=== PATIENT | female | born 1985 | race Caucasian/White ===

== ENCOUNTER 2016-05-24 22:13 | Inpatient (IN) | payer MEDICAID, OTHER ==
[~2016-05-24] VITALS: Ht 165.1 cm; Wt 61.4 kg
[~2016-05-24 22:13] MED LIST: IBUP-1827 PO; NPR500T PO; OXYC1TAB24 PO; OXYC1TAB91 PO; PREN1TAB25 PO
[2016-05-24 22:18] VITALS: BP 131/78; PULSE 82; RESP 16; O2SAT 100
--- NOTE | 2016-05-24 23:45 | ED.REPORT ---
HPI-Psychiatric Illness Date of Service May 24, 2016 ED Provider: Munira Heart MD The patient is a 30 year old female with history of bipolar disorder, PTSD, and generalized anxiety disorder who presents to the ED after asking her boyfriend to bring her to the hospital after she lost control control of her emotions and began hitting her head against the wall. She is seeking a mental health evaluation because she "doesn't want to be a freak anymore". She says that she "wants to disappear" but does not know if she is suicidal- her mother committed suicide and she does not want to put her children through what she went through. She reports hearing a voice in her head which she believes is her conscience. She denies homicidal ideation and any other symptoms at this time. Nursing Notes Stated Complaint: MENTAL EVAL Chief Complaint: Psychiatric Complaint Nursing Notes Reviewed: Yes Allergies: Coded Allergies: venlafaxine (Verified Adverse Reaction, Unknown, 05/24/16) Homicidal ideation Scheduled Oxycodone HCl/Acetaminophen (Endocet 10-325 mg Tablet) 1 Each Tablet 1-2 EACH PO QID Vit#96/Ferrous Fum/FA ( Tablet) 1 Each Tablet 1 EACH PO DAILY Scheduled PRN Ibuprofen (Ibuprofen) 600 Mg Tablet 600 MG PO QID PRN PRN For Pain Naproxen (Naproxen) 500 Mg Tab 500 MG PO BID PRN PRN For Pain oxyCODONE-Acetaminophen 5-325 mg (oxyCODONE-Acetaminophen 5-325 mg) 1 Each Tablet 1-2 TAB PO Q4H PRN PRN For Pain oxyCODONE-Acetaminophen 5-325 mg (oxyCODONE-Acetaminophen 5-325 mg) 1 Each Tablet 1-2 TAB PO Q6H PRN PRN For Pain General Time Seen by MD: 23:33 Chief Complaint Suicidal ideation Hx Obtained From: Patient Arrived By: Walk-in Onset Occurred: 1 - 4 hours ago Symptom Duration: 16 - 30 minutes Severity: Current: No pain currently Severity: Maximum: No pain Recent Healthcare: No recent doctor visit, No recent hospitalization Similar Sx Previous: No Risk-Psychiatric Illness Suicide Risk Stratification Suicide Risk Factors - Adult: : Family Hx of Suicide (Mother) RF Statements: Risk factors reviewed Past Medical History Past Medical History Bipolar disorder with history of depression. History of rectal and vaginal tear Past Surgical History 5 weeks ago Family History Noncontributory Smoking History Former Smoker Social History Alcohol Use: "Social" Drug Use: Denies drug use Ambulatory Status Independent Review of Systems Constitutional: Denies: Chills, Fever Respiratory: Denies: Non-productive cough, Shortness of breath GI: Denies: Abdominal pain, Nausea, Vomiting Psychiatric: Reports: Anxiety, Hallucinations, auditory, Suicidal ideation, Unable to control self, Denies: Hallucinations, visual, Homicidal ideation, Hostile Complete sys rev & neg: except as marked. Physical Exam Initial Vital Signs Vital Signs (First) Date Time Temp Pulse Resp B/P Pulse Ox O2 Delivery O2 Flow Rate FiO2 05/24/16 22:18 36.1 82 16 131/78 100 Room Air Initial VS: Reviewed Head / Eyes: Atraumatic, Normocephalic, PERRL ENT: Mucous membranes moist, Conjunctiva normal, No scleral icterus Neck: Supple, Non-tender, Full range of motion Respiratory: Breath sounds normal, Clear to auscultation, No respiratory distress Cardiovascular: Regular rate & rhythm, Heart sounds normal, Intact distal pulses Abdomen / GI: Soft, Non-tender, No guarding, No rebound, No distention Back: No CVA tenderness Extremities: Vascular intact, Neuro intact, No swelling, No tenderness Skin: Warm, Dry, No cyanosis General/Constitutional: Awake, Alert Behavior: Positive: Tearful Neurologic: Oriented X3, Speech NL, No motor deficits, No sensory deficits Psychiatric: Not homicidal Abnormal Mood/Affect: Positive: Depressed Abnormal Thinking / Perception: Positive: Hallucinations, auditory, Suicidal, no plan Normal speech patterns Interpretation & Diagnostics Lab Results Interpretation Result Diagram: 05/24/16 2345 05/24/16 2345 Test 05/24/16 23:45 05/24/16 23:46 White Blood Count 8.6th/mm3 (3.8-10.1) Red Blood Count 4.19mil/mm3 (3.90-5.20) Hemoglobin 11.4g/dL (12.0-15.6) Hematocrit 36.1% (35.0-46.0) Mean Corpuscular Volume 86.2fL (81-100) Mean Corpuscular Hemoglobin 27.2pg (27.0-35.0) Mean Corpuscular Hemoglobin Concent 31.6% (32.0-37.0) Red Cell Distribution Width 13.7% (12.3-15.4) Platelet Count 187bil/L (150-400) Neutrophils (%) (Auto) 69.4% (40-74) Lymphocytes (%) (Auto) 17.2% (14-46) Monocytes (%) (Auto) 11.8% (4-12) Eosinophils (%) (Auto) 1.3% (0-5) Basophils (%) (Auto) 0.2% (0-3) Sodium Level 141mEq/L (134-144) Potassium Level 4.1mEq/L (3.5-5.2) Chloride Level 107mEq/L (97-108) Carbon Dioxide Level 22mmol/L (18-29) Blood Urea Nitrogen 8mg/dL (6-20) Creatinine 0.47mg/dL (0.57-1.00) Estimat Glomerular Filtration Rate 221mL/min (>59) Glucose Level 100mg/dL (60-99) Calcium Level 8.7mg/dL (8.5-10.1) Total Bilirubin 0.2mg/dL (0.0-1.2) Aspartate Amino Transf (AST/SGOT) 17U/L (0-50) Alanine Aminotransferase (ALT/SGPT) 12U/L (0-32) Alkaline Phosphatase 45U/L (25-150) Total Protein 6.5g/dL (6.4-8.4) Albumin 4.1g/dL (3.4-5.0) Thyroid Stimulating Hormone (TSH) 1.170uIU/mL (0.450-4.500) Hold Sosa Top Tube Received (Received) Re-Eval/Medical Decision Med Decision/Clinical Course 30-year-old female with past medical history of anxiety, PTSD, bipolar disorder , not currently taking her medications here with suicidal ideation. Differential diagnosis includes but is not limited to suicidal ideation versus electrolyte abnormality versus malingering versus drug-seeking behavior. Patient's CBC and CMP are unremarkable, aside from mild leukocytosis. Her urinalysis has not yet resulted. She is otherwise medically cleared, and has been transferred to the care of who will follow up her urinalysis. Patient will be seen by social work in the morning. She is aware and amenable to plan. Source of Hx: Old records Discharge & Departure Shift Change Sign-Out Patient Care Transferred: Yes Discussed Complaint(s): Yes Laboratory Evaluation: Lab evaluation discussed Response to Therapy: Unchanged Discharge Condition All VS Reviewed: Yes Condition: Stable Referrals: Rahat Meeks DO (PCP) Care Transferred to: Dr. Duvall. Care transferred at change of shift. Care Transferred at: 03:00 Scribe Attestation Portions of this note were transcribed by Rahat Gautam. I, Dr. Heart, personally performed the history, physical exam, and medical decision-making; I reviewed and confirmed the accuracy of the information in the transcribed note. Signed by: Isaac Soares, [Date] and [Time]. copies to: Rahat Meeks Rebecca A MD May 24, 2016 23:45 RAHAT GAUTAM May 25, 2016 00:03
[2016-05-24 23:56] LABS: BASOPHILS % (AUTO) 0.2 % (0-3); EOSINOPHILS % (AUTO) 1.3 % (0-5); MONOCYTES % (AUTO) 11.8 % (4-12); Mean Corpuscular Hemoglobin 27.2 pg (27.0-35.0); Mean Corpuscular Volume 86.2 fL (81-100); NEUTROPHILS % (AUTO) 69.4 % (40-74); Platelet Count 187 bil/L (150-400)
[2016-05-25 05:48] VITALS: BP 96/53; PULSE 61; RESP 18; O2SAT 98
[2016-05-25 07:59] VITALS: BP 95/55; PULSE 83; RESP 16; O2SAT 98
[2016-05-25] MEDS ORDERED: LORazepam 1 mg Tablet PO ONE (11:50)
[2016-05-25 16:38] VITALS: BP 109/67; PULSE 87; RESP 16; O2SAT 100
[2016-05-25 18:43] LABS: APPEARANCE,URINE HAZY (CLEAR,HAZY); COLOR,URINE YELLOW (YELLOW); OCCULT BLOOD,URINE NEGATIVE (NEGATIVE); UROBILINOGEN,URINE NORMAL (NORMAL)
[2016-05-25] MEDS ORDERED: Alum-Mag Hydrox-Simeth 30 mL Suspension PO PRN (19:30)
[2016-05-25] MEDS ORDERED: Benzocaine-Menthol Lozenge 2/Pkg PO PRN (19:30)
[2016-05-25] MEDS ORDERED: Magnesium Hydroxide 10 mL Oral Concentration PO PRN (19:30)
--- NOTE | 2016-05-25 19:57 | NUR ---
OBSERVATIONS 899 to 2129 Pt arrived on unit at 1815. Pt was cooperative with admit paperwork and forthcoming with information. Pt is pleasant and appropriate. Pt attempts to be social but at times becomes visibly anxious, sometimes tearful. Pt showered and made a phone call, participated in wrap up group. Addendum: 05/25/16 at 2046 by [facility] Maintained Q15 checks for safety as directed.
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
[2016-05-25] MEDS ORDERED: CETI10CA PO (21:47)
--- NOTE | 2016-05-26 06:17 | NUR ---
Sleep Ambien w/ repeat effective. Pt slept through the night awakening x 1. Adequate sleep of over 7 hours. She remains asleep at current time.
--- NOTE | 2016-05-26 11:50 | NUR ---
Nursing Day Shift- S- I feel really anxious. I'm sweating. That's what happens when I get anxious. I don't feel that pill." O- Pt. was awake for breakfast. She was polite with staff and peers. at 0850 Pt. complained of anxiety rated 8/10. Klonopin 1 mg was given at that time. At 0930 Pt. denied feeling a decrease in anxiety, but at 10 AM she rated her anxiety as 5/10, and laid down to take a nap. Pt. denied thoughts of self harm. A- Anxiety. Hx. of poor sleep. P- Cont. bHTP. Awaiting interview with
--- NOTE | 2016-05-26 17:48 | NUR ---
[facility] Day Shift Pt maintained behavioral control throughout the shift, despite some difficulty in the late AM/early afternoon when pt became inconsolably tearful. Pt affect appears sad, tearful in the AM, brighter in the afternoon. Pt spends most of the shift interacting with staff and peers in the dining room. Pt expresses a strong desire to see her family members during visiting hours, which staff accommodated without incident. Pt is appropriate with staff and peers when active on the unit and appears more social in the afternoon/evening. Pt attended community meeting in the AM and group activities throughout the shift. Pt attended all meals and ate approx 75% of all meals.
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
[2016-05-26] MEDS: Divalproex (QD) 500 mg ER24 Tablet PO SCH (21:09)
--- NOTE | 2016-05-26 21:44 | NUR ---
NURSING NOTE [id number] Mood: "up and down I guess" *laughs nervously* Affect: bright and pleasant w/peers, occasional irritable edge w/staff Behavior: pt. has been visible and social all shift; she spent time in the rec room w/her peers, colored for a while, her sister brought her 2 year-old son to visit under staff supervision per doctors permission. Pt. overheard by staff complaining to her peers and family about RNs working here and later told this designer writer: "I'm so glad you're here now -- those other nurses were BITCHES!-- they asked me why I needed anxiety medication and what it was for! Like I don't have anxiety!" Counseled pt. that RNs routinely assess need for medication in order to properly administer it. Minimal understanding noted by patient. Thought processes: pt. denies SI/HI/AH/VH. She endorses anxiety and depression. Reports she has tried "really, really hard" to be out in the DR during the day and amongst her peers. In conversation w/this designer writer she has a frequent nervous habit of grabbing at her throat and wafting air in front of her face when she becomes anxious and her face becomes flushed. PRNs Klonopin 1 mg @ 18:45 for 8/10 anxiety, effective upon reassessment
--- NOTE | 2016-05-27 06:08 | NUR ---
Nursing note: gauge operator 2300-07 Patient appears to be sleeping on safety checks until she awoke at 0440. Patient reports she woke up feeling anxious and requested Klonopin. Patient received Klonopin 1 mg at 0442 and additional Nicorette lozenge. Patient returned to room and appears to be sleeping on subsequent safety checks this am.
[2016-05-27 10:16] VITALS: BP 122/87; PULSE 108; RESP 16
--- NOTE | 2016-05-27 13:07 | NUR ---
Nursing Note [id number] Behavior S/O: Pt has good appetite. Pt polite & cooperative. Conversation tracking clear but disorganized with normal rate & rhythm. Out in milieu and groups. Pt requesting information about Depakote & prazosin-given. Pt reports she takes Claritin BID. Pt given Claritin early. Pt will talk with psychiatrist about ordering it twice daily. VS stable except pulse is 108. Pt requested "anxiety medication" for "agarophobia" at a "7" on a scale of 1-10/10 the worst. A: Pt's thinking d/n appear clear. P: Provide supportive environment. Monitor medications & effects.
--- NOTE | 2016-05-27 16:52 | PROG NOTE ---
[address] [address] PROGRESS NOTE PATIENT: LOBO DEVI : 1985 MR#: [id number] ADMIT: 05/25/2016 JOB ID: [id number] DATE: 05/27/2016 CHIEF COMPLAINT: "I had some suicidal thoughts yesterday but none this morning. I am having a hard time. Thinking about going back home." HISTORY OF PRESENT ILLNESS: As stated above, the patient is a 30-year-old female who reportedly was admitted within the past 72 hours. She reportedly has been seen by Dr. Cordova and history was reviewed. The patient indicated that last evening she was experiencing significant distress, thinking about returning back home, and stated that she became quite suicidal. She indicated that she had thoughts and plans of returning back to her home and potentially taking an overdose. She indicated that she did not share this with staff. She reports that prior to her admission, she was struggling with daily thoughts of suicide and thoughts of self-harm. She indicates that she was started on medications by Dr. Cordova including doses of Depakote, with the hope and intent to settle some of her mood swing variability. She is currently maintained on 1000 mg q.h.s. She reportedly is also receiving p.r.n. doses of Klonopin and was initiated on prazosin low-dose therapy at 1 mg q.h.s. She reports that she has seen an improvement with her nightmares with the doses of prazosin but states that she continues to struggle with fears and anxiety as related to her discharge. MENTAL STATUS EXAMINATION: She was casually dressed in her own attire. She made intermittent eye contact. Her speech is of normal tone, frequency, and volume. Her mood was anxious. Affect was guarded. Her thought process shows evidence of some distractibility and throughout she appeared to be internally preoccupied. Her thought content, she denies any current suicidal ideation. She reportedly identified last evening she was struggling with both suicidal and thoughts of self-harm. She denies any active hallucinations or delusions. There is no sensation of paranoia. She was alert, oriented to time and place. Her attention and concentration were fleeting. Her memory is untested. Her insight and judgment are poor. PHYSICAL EXAM: Vital signs current: Temperature is 36.5, pulse 108, respirations 16, BP 122/87. MEDICATION REVIEW: Includes: 1. Doses of Depakote 1000 mg q.h.s. 2. Prazosin 1 mg q.h.s. 3. P.r.n. doses of Klonopin 1 mg q.4 h. for anxiety and agitation. ASSESSMENT: Phoenix I. 1. Bipolar disorder, most recent episode depressed. 2. Posttraumatic stress disorder chronic. 3. Generalized anxiety disorder. 4. Panic disorder with agoraphobic presentation. 5. Marijuana use disorder. 6. Methamphetamine use disorder, in remission. Phoenix II. Borderline personality disorder. Phoenix III. None. Phoenix IV. Stressors are moderate. Phoenix V. Global Assessment of Functioning current 35. PLAN: 1. Recommendations for continuation of all medications noted. 2. Probable discharge on Friday with reconnections with [facility]. The patient reports that she had attended both [facility] and [facility] for intakes and preferred not to return to those facilities, indicating that she felt that she was disregarded. 3. Continuation of DBT curriculum and approach.
[2016-05-27] MEDS: Divalproex (QD) 500 mg ER24 Tablet PO SCH (20:50)
--- NOTE | 2016-05-27 23:02 | NUR ---
Evening shift 3pm to 11pm Pt AAOx3, pleasant and cooperative, socializing in milieu with peers, Pt reports mood anxious /10, affect incongruent. Thoughts organized, linear and logical. Pt reports passive and fleeting SI with no plan or intent and agrees to come to staff if impulse to hurt self arise. Pt's with adequate food and fluid intake, hygiene good. Pt able to make needs known, is medication compliant, no medical issues reported or observed.
--- NOTE | 2016-05-28 04:39 | NUR ---
nursing, nights, 11-7 s/o- has appeared to sleep after 2345 during q 15 minute assessments. a- no apparent distress. p- monitor behavior/emotional state, quality, times and amount of sleep, use and effect of medication
--- NOTE | 2016-05-28 13:15 | NUR ---
Nursing Note [id number] Behavior S/O: Pt has good appetite. She attends groups with peers. Pleasant & cooperative with staff & peers. Pt states she would like more information on coping skills that she can use when she is discharge. Advised pt to talk with patient case coordinator for handouts. Pt requested anxiety medications for agarophobia that she rated at a "7" on a scale of 1-10/10 the worst. She states she has to really work on getting out of her room. Klonopin 1 mg given at 1033 with good affect. Full affect. Conversation tracking clear & organized with normal rate & rhythm. Alert & oriented x 3. A: Pt needs coping skills to maintain mood outside of the hospital. P: Monitor medications & effects. Provide supportive environment.
--- NOTE | 2016-05-28 15:14 | PROG NOTE ---
[address] [address] PROGRESS NOTE PATIENT: LOBO DEVI : 1985 MR#: [id number] ADMIT: 05/25/2016 JOB ID: [id number] DATE: 05/28/2016 CHIEF COMPLAINT: "I guess I'm doing okay." This per patient report. HISTORY OF PRESENT ILLNESS: As stated above, the patient met with myself and AJ. She was informed that the plan and intent to discharge is going to proceed into arranging outpatient appointments with [facility]. She did appear to be somewhat distraught, tearful indicating that she does not know if she feels that she is ready to leave the hospital. She was affirming that she had no further safety concerns, no evidence of suicidal thoughts throughout the daytime hours. She indicates that she has been participating in group activities and actually was attending a group prior to meeting with myself and AJ. The patient became tearful openly identifying that she does have some anxiety about discharging but she was encouraged to continue with her current treatment plans including completing the discharge paperwork, identifying triggers and safety and warning signs appearing. OBJECTIVE: On mental status examination, the patient made questionable eye contact, she was initially full and bright on interaction until discussion was held about the plan of discharge. The patient became quite tearful, distraught, identifying some anxiety. Her speech was of normal tone, frequency and volume. Her mood was alexithymic. Her affect was inappropriate and incongruent. Her thought process shows no evidence of racing thoughts, flight of ideas, loose or disconnected thinking. Thought content: She denied any evidence of current suicidal ideation, intent or plan. No evidence of homicidal variant. There was no evidence of paranoia, hallucinations, delusions. She was alert, oriented to time, place, situation. Attention and concentration intact. Memory intact in the short term, jail, recent. Insight and judgment are fair. PHYSICAL EXAMINATION: Vital signs of current. Temperature is 36.5, pulse 108, respirations 16, BP 122/87. MEDICATION REVIEW: Includes: 1. Depakote 1000 mg ER q.h.s. 2. Prazosin 1 mg q.h.s. 3. Trazodone 25 mg p.r.n. at h.s. 4. Naproxen 500 mg b.i.d. 5. Klonopin 1 mg q.4 hours p.r.n. for anxiety and agitation. ASSESSMENT: AXIS I 1. Posttraumatic stress disorder, chronic. 2. Generalized anxiety disorder. 3. Panic disorder with agoraphobic presentation. 4. Marijuana use disorder. 5. Methamphetamine use disorder. AXIS II Borderline personality disorder. AXIS III None. AXIS IV Stressors are significant for disturbance of coping, previous usage of substances. AXIS V Global assessment of functioning current 40. PLANS: 1. Recommendations for continuation of all medications noted. 2. Plan of discharge with followup with [facility]. 3. Continuation of a DBT curriculum and approach.
--- NOTE | 2016-05-28 18:49 | NUR ---
Observations [id number] Pt was asleep in room upon start of shift. She appeared to be very confused in the morning, stating her meds are making her feel "spacey." Pt was friendly with staff and peers. Pt asked during the day if there were any therapeutic activities she could do during her stay here. She participated in group. In the afternoon, pt became extremely anxious and upset regarding her discharge, crying and sitting in the corner of the joshi. She banged her head on the wall, and threw some of her belongings. Pt demanded to "leave right now" and was noticeable upset that she would be sharing a room. Pt was able to calm down after a few hours. Pt was observed every 15 minutes of shift as directed.
[2016-05-28 20:43] VITALS: BP 98/70; PULSE 83; RESP 17
[2016-05-28] MEDS: Divalproex (QD) 500 mg ER24 Tablet PO SCH (20:59)
--- NOTE | 2016-05-28 22:23 | NUR ---
Nursing Note [id number] Pt screaming at nurse in hallway upon arrival to unit. Pt upset r/t having to share room and being DC in am. Pt moved to room 231. Pt stating "I want to leave if I have to share a room, Im voluntary and I want to leave. Called MD and had pt signed AMA paperwork at 1615. Pt then decided to stay after talking to boyfriend and finding out that she would not be allowed home. Pt crying in room and stated "I want to leave but I can't because I can't go home". Pt stated she would try and control her behavior. Boyfriend called and talked to nursing staff and stated she was threatening to kill herself if he wouldn't allow her home. I asked pt if she was having thoughts of harming herself and she denied. Pt rated anxiety 8/10 and depression 8/10. Pt has been calling [facility] to try and get a bed for DC in am. Q15 min safety checks per protocol, Pt behavior improved and was able maintain control. PRN trazodone given to promote sleep. WCTM sleep, safety, behavior
--- NOTE | 2016-05-29 06:37 | NUR ---
Sleep Adequate sleep through the night with no noted distress per protocol checks. Total sleep over 7 hours.
--- NOTE | 2016-05-29 09:32 | PCM.DIMED ---
Discharge Instructions Date of Service May 29, 2016 Dates of Hospitalization May 25, 2016 at 17:45 Discharge Diagnosis Discharge Diagnosis Borderline Personality DO PTSD chronic Mood DO NOS Diet No restrictions Activity No restrictions Mo Jaquez DO May 29, 2016 09:31
[2016-05-29] MEDS ORDERED: DIVA500T14 PO (09:33)
[2016-05-29] MEDS ORDERED: PRAZ1CAP PO (09:33)
[2016-05-29 11:24] VITALS: BP 103/55; PULSE 83; RESP 18
--- NOTE | 2016-05-29 11:52 | NUR ---
Nursing Discharge- Planned discharge to [facility] in [place] at 1230 today. Pt's medications to be faxed to [facility] in [place] as she had requested. Pt. expressed discharge anxiety rated 8/10 at 0900. She requested and received Klonopin 1 mg at that time. Pt. reported that it had been helpful. She denied thoughts of self harm. She was able to identify the source of her anxiety as being a new and unknown living situation. Pt. continues to eat well.
--- NOTE | 2016-05-29 15:10 | DIS ---
[address] [address] DISCHARGE SUMMARY PATIENT: LOBO DEVI : 1985 MR#: [id number] ADMIT: 05/25/2016 JOB ID: [id number] DIS: ADMITTING DIAGNOSES: AXIS I 1. Bipolar disorder, most recent episode depressed. 2. Posttraumatic stress disorder, chronic. 3. Generalized anxiety disorder. 4. Rule out panic disorder. 5. Marijuana use disorder. 6. Methamphetamine use disorder, in remission. AXIS II Borderline personality disorder. AXIS III None. AXIS IV Moderate. AXIS V Global Assessment of Functioning current 35. DISCHARGE DIAGNOSES: AXIS I 1. Mood disorder, not otherwise specified. 2. Posttraumatic stress disorder, chronic. 3. Marijuana use disorder. 4. Methamphetamine use disorder, in remission. AXIS II Borderline personality disorder. AXIS III None. AXIS IV Stressors are noted for disturbance of coping, disturbance of primary support system, chronic substance abuse. AXIS V Global Assessment of Functioning current 50. REASON FOR ADMISSION: The patient was a 30-year-old female with alleged history of bipolar disorder, PTSD, anxiety and significant substance abuse. She reportedly was admitted on a voluntary basis due to difficulties with increasing emotional lability and self-destructive behaviors including head banging. By history, the patient reportedly had sought out individual treatment at both [facility], and reportedly had been treated with medications prescribed by Dr. Harding including doses of lithium, Lamictal, paroxetine, citalopram, Wellbutrin, Prozac, quetiapine with noted inability to tolerate all medications. She reportedly had no prior history of inpatient hospitalization. Throughout hospital course, the patient remained quite labile and openly sensitive to feelings of abandonment rejection. She openly identified significant contributory factors of interpersonal conflict, difficulties with internal senses of rage and feelings of deep depression. Throughout hospital course, patient was initiated on medications by Dr. Cordova including doses of Depakote titrated to 1000 mg q.h.s. She reportedly also was initiated on doses of prazosin for noted history of nightmares. Throughout hospital course, the patient essentially identified a desire to follow up with outpatient care providers but was reluctant to engage, openly identifying that she feels that no one will be able to meet her needs. She was very dramatic and had significant sabotaging behaviors on the evening prior to discharge with threats of discharging against medical advise. Orders were given for discharge AMA. However, the patient elected to continue her hospitalization. Conversations were held by myself and the test case developer with her boyfriend of current who openly identified patterns of behavior including self-destruction, self-injurious behaviors, feelings of abandonment, of rage, difficulties with open acts of aggression directed towards the boyfriend. He identified that he felt uncomfortable with the patient returning to their home due to the safety and concern of the 2-year-old. He was encouraged to consider alternative options including moving in with his own parents. Discussion was held with the patient about the need for continuation of outpatient services repeatedly. However, she openly identified that she feels that no one can help her and showed a limited investment to change. Recommendations were to advance to a DBT curriculum for the emphasis of borderline treatment. The patient was agreeable to maintain on doses of Depakote, and her Depakote level on the day of discharge was noted at 74. It was felt that this may be used in conjunction for treatment of her mood stability. However, I did not support a diagnosis of bipolar disorder. I feel that this is inappropriate based on the patient's evidence of a clear diagnosis of borderline personality disorder, and I have discussed repeatedly with the patient and her boyfriend the importance of interventions of therapy component. CONDITION AT TIME OF DISCHARGE: Patient's mood and affect were stable. She denied any evidence of expressed suicidal intent or plan. She continues to struggle with daily thoughts and feelings of hopelessness, which is characteristic of her borderline personality disorder. She denied any active hallucinations, delusions. She was alert, oriented to time and place. Her attention and concentration were intact. Her insight and judgment were deemed poor. PLAN: 1. Recommendation is to discharge to [facility] if bed available. Alternative plans would include local nursing home options. 2. Recommendation is for continuation of Depakote ER 1000 mg q.h.s., 1 month supply, no refills. Reason for usage, mood stabilization. 3. Continuation of pravastatin 1 mg 1 tablet q.h.s., 1 month supply, no refills. Reason for usage, PTSD. 4. Recommended followup with [facility]. Appointments to be arranged by family independence case manager for both individual therapy, DBT curriculum, and medication management. 5. The patient was recommended to maintain a clean and sober lifestyle. 6. Recommendation is for future planning if the patient shows up on a basis with a desire to admit to the inpatient sector based on her previous history and limited investment to change with noted disruption on the inpatient unit. I would highly suggest that the patient be detained with recommendation of proceeding into placement at [facility] or other site facility that specializes in dealing with a DBT curriculum. I do not feel that the patient would benefit from readmission to our unit at this time due to her self-destructive and self-sabotaging behaviors.
--- NOTE | 2016-05-29 16:29 | NUR ---
Case Management/Counselor: S/O: Patient slept 6.5 hours last night per staff. Patient denied any evidence of expressed suicidal intent or plan. She continues to struggle with daily thoughts and feelings of hopelessness, which is characteristic of her borderline personality disorder. Out-patient appointment: [facility] Intake, 06/03/16 at12:00pm. A: Patient is cooperative at times, flat affect, poor insight, poor judgment. P: Follow the care plan, coordinate out-patient provider. Addendum: 05/29/16 at 1726 by [facility]
== END 2016-05-29 13:25 | disposition home or self-care (01) | DRG 753 ==
LOC: SED 22:13 → MHC 05-25 17:45
PROVIDERS: ADMIT Psychiatry & Neurology Psychiatry; ATTEND Psychiatry & Neurology Psychiatry
DX: F39 Unspecified mood [affective] disorder (principal); F41.1 Generalized anxiety disorder; F43.12 Post-traumatic stress disorder, chronic; F60.3 Borderline personality disorder; Z87.891 Personal history of nicotine dependence; F12.90 Cannabis use, unspecified, uncomplicated; F15.21 Other stimulant dependence, in remission

== ENCOUNTER 2016-10-12 16:02 | Observation (INO) | payer OTHER ==
[~2016-10-12] VITALS: Ht 165.1 cm; Wt 63.6 kg
[~2016-10-12 16:02] MED LIST changes: +DIVA500T14 PO; -IBUP-1827 PO; -OXYC1TAB24 PO; -OXYC1TAB91 PO; +PRAZ1CAP PO
--- NOTE | 2016-10-12 16:19 | ED.REPORT ---
HPI-Extremity Problem Lower Date of Service Oct 12, 2016 ED Provider: Dr. Gilberto Wilburn MD A healthy 31 year old female presents to the ED via EMS complaining of left leg pain secondary to an injury that occurred just prior to arrival. Patient was reportedly going down a steep slide and caught the leg in the slide causing it to fold back. The patient's endorses crepitus when the incident occurred. She currently describes throbbing pain in the LLE. Patient denies any other injuries above the knee. She denies chance of . Nursing Notes Stated Complaint: LEFT LOWER LEG INJURY Nursing Notes Reviewed: Yes Allergies: Coded Allergies: venlafaxine (Verified Adverse Reaction, Unknown, 05/24/16) Homicidal ideation Scheduled Divalproex ER (Divalproex ER) 500 Mg Tab.er.24h 1,000 MG PO HS Prazosin (Minipress) 1 Mg Capsule 1 MG PO HS Vit#96/Ferrous Fum/FA ( Tablet) 1 Each Tablet 1 EACH PO DAILY Scheduled PRN Naproxen (Naproxen) 500 Mg Tab 500 MG PO BID PRN PRN For Pain General Time Seen by MD: 16:19 Chief Complaint Leg injury left Hx Obtained From: Patient Arrived By: Ambulance Onset Occurred: Just prior to arrival Symptom Duration: Since onset Caused by: Accidental Location: : Leg left Quality: Painful, Throbbing Severity: Current: Moderate Severity: Maximum: Moderate Associated with: Reports: "Pop" felt or heard, Unable to bear weight Pertinent Negative: Pt denies other symptoms Recent Healthcare: No recent doctor visit, No recent hospitalization Past Medical History Past Medical History Bipolar disorder with history of depression. History of rectal and vaginal tear Past Surgical History Family History Noncontributory Smoking History Former Smoker Social History Alcohol Use: "Social" Drug Use: Denies drug use Other Social History: , Local resident Ambulatory Status Independent Review of Systems She denies any other injuries at this time. Musculoskeletal: Reports: Extremity pain (LLE), Denies: Back pain, Neck pain Neurologic: Denies: Change LOC, Headache Complete sys rev & neg: except as marked. Physical Exam Initial Vital Signs Vital Signs (First) Date Time Temp Pulse Resp B/P Pulse Ox O2 Delivery O2 Flow Rate FiO2 10/12/16 16:22 36.2 74 18 122/62 100 Room Air Initial VS: Reviewed Head / Eyes: Atraumatic, Normocephalic, PERRL Neck: Supple, Non-tender, Full range of motion Upper Extremities: Vascular intact, Neuro intact, No swelling, No tenderness Skin: Warm, Dry, No cyanosis Neurologic: Alert, Oriented, Nonfocal Psychiatric: Mood/affect normal, Behavior normal, Normal thought content Lower Extremity / Pelvis / MS: Neurologic intact, Vascular intact Left Leg / Calf: Positive: Tenderness present... LOWER EXTTREMITIES: Mid-leg deformity Good DP and PT pusles Ankle / Foot: Atraumatic, Neurologic intact, Vascular intact General/Constitutional: Awake, Alert, No acute distress Respiratory / Chest: Atraumatic, Breath sounds NL, Breath sounds = bilat, No respiratory distress Cardiovascular: Heart rate NL, Regular rhythm, Heart sounds NL Interpretation & Diagnostics Lab Results Interpretation Test 10/12/16 16:40 Hold Purple Top Tube Received (Received) Hold Blue Top Tube Received (Received) Hold Barton Top Tube Received (Received) X-Ray Interpretation Xray Interpretation: IMPRESSION: Spiral tibiofibular fracture X-Ray Ordered: Tibia fibula left Interpretation / Wet Read by: Wet read ED physician Re-Eval/Medical Decision Re-Evaluation/Progress : Time of Eval: 16:44 Patient Status: Condition improved Re-Evaluation/Progress Note: Patient is rechecked. She is informed of her X-ray results. All questions about the intended treatment plan are addressed. She understands and agrees with the plan to admit to the hospital. Consultation : Referral / Consult Name: Neil Carias MD Consulted With: Orthopedic Call Returned at: 16:54 Counter Maker: Will see patient, Will see in office, Agrees with eval, Agrees with plan, Accepts admit Counseled Regarding: Diagnosis, Need for admission Discharge & Departure Impression: Primary Impression: Spiral fracture of shaft of tibia Encounter type: initial encounter Fracture type: closed Fracture alignment : displaced Laterality: left Qualified Code: S82.242A - Displaced spiral fracture of shaft of left tibia, initial encounter for closed fracture Additional Impression: Spiral fracture of shaft of fibula Encounter type: initial encounter Fracture type: closed Fracture alignment : displaced Laterality: left Qualified Code: S82.442A - Displaced spiral fracture of shaft of left fibula, initial encounter for closed fracture Disposition: ADMITTED TO HOSPITAL Discharge Condition All VS Reviewed: Yes Condition: Stable Referrals: Rahat Meeks DO (PCP) Neil Carias MD Attestation Portions of this note were transcribed by Lizbet Neal. Dr. Cosmo Yeager personally performed the history, physical exam and medical decision-making; I reviewed and confirmed the accuracy of the information in the transcribed note. Signed by: Isaac Langston, 10/12/16 1745. copies to: Rahat Meeks Kirk H MD Oct 12, 2016 16:19 LIZBET NEAL Oct 12, 2016 16:23 Isaac Attestation Portions of this note were transcribed by Lizbet Neal. Dr. Cosmo Yeager personally performed the history, physical exam and medical decision-making; I reviewed and confirmed the accuracy of the information in the transcribed note. Signed by: Isaac Langston, 10/12/16 1800. copies to: Rahat Meeks Kirk H MD Oct 12, 2016 16:19 LIZBET NEAL Oct 12, 2016 16:23
[2016-10-12 16:22] VITALS: BP 122/62; PULSE 74; RESP 18; O2SAT 100
[2016-10-12] MEDS ORDERED: Ondansetron 2 mg/mL 2 mL Inj IVPUSH PRN ×2 (16:35→19:00)
[2016-10-12] MEDS: HYDROmorphone 1 mg/mL Inj IVPUSH PRN ×2 (17:00→17:43)
[2016-10-12] MEDS ORDERED: HYDROmorphone 1 mg/mL Inj IVPUSH PRN ×4 (17:05→23:45)
--- NOTE | 2016-10-12 17:51 | DRSVH ---
PROCEDURE: X-RAY LEFT TIBIA/FIBULA, TWO VIEWS ([id number]) INDICATIONS: trauma TECHNIQUE: 2 views of the tibia and fibula were acquired. COMPARISON: None. FINDINGS: Bones: There is a mild displaced spiral fracture of the tibial shaft. There is also a mildly displac ed spiral fracture of the distal fibula involving the lateral malleolus. Soft tissues: No suspicious soft tissue calcifications or masses. IMPRESSION: 1. Mildly displaced spiral fractures of the tibia and fibula. Dictated by: Michael Wallace M.D. on 10/12/2016 at 17:48 Approved by: Michael Wallace M.D. on 10/12/2016 at 17:49
--- NOTE | 2016-10-12 18:00 | DRSVH ---
PROCEDURE: X-RAY LEFT ANKLE, MINIMUM THREE VIEWS ([id number]) INDICATIONS: trauma TECHNIQUE: 3 views of the ankle were acquired. COMPARISON: [facility], CR, XR TIBIA FIBULA 2VW LT, 10/12/2016, 16:22. FINDINGS: Bones: There is a mildly displaced spiral fracture of the distal tibial shaft. There is also a mild ly displaced spiral fracture of the distal fibula involving the lateral malleolus with extension to t he distal tibiofibular syndesmosis. The ankle mortise demonstrates preserved alignment. Soft tissues: Soft tissue swelling is present over the lateral malleolus. There is a small tibiotala r joint effusion. IMPRESSION: 1. Fracture of the distal fibula with extension to the tibiofibular syndesmosis. 2. Fracture of the distal tibial shaft. Dictated by: Michael Wallace M.D. on 10/12/2016 at 17:57 Approved by: Michael Wallace M.D. on 10/12/2016 at 17:58
--- NOTE | 2016-10-12 18:01 | DRSVH ---
PROCEDURE: X-RAY LEFT TIBIA/FIBULA, TWO VIEWS ([id number]) INDICATIONS: trauma TECHNIQUE: 2 views of the tibia and fibula were acquired. COMPARISON: [facility], CR, XR TIBIA FIBULA 2VW LT, 10/12/2016, 16:22. [facility], CR, XR ANKLE 3VW LT, 10/12/2016, 16:57. FINDINGS: Bones: There is a mild displaced spiral fracture of the mid to distal tibial shaft with slight latera l and posterior displacement of the distal component. There is also a mildly displaced spiral fractu re of the distal fibula involving the lateral malleolus with extension to the distal tibiofibular syn desmosis. Soft tissues: No suspicious soft tissue calcifications or masses. IMPRESSION: 1. Fractures of the tibia and fibula as described. Dictated by: Michael Wallace M.D. on 10/12/2016 at 17:59 Approved by: Michael Wallace M.D. on 10/12/2016 at 18:00
--- NOTE | 2016-10-12 18:55 | PCM.HPMED ---
Subjective Date of Service Oct 12, 2016 Primary Provider: Admitting Physician: Neil Carias MD Primary Care Physician: Rahat Meeks DO Attending Physician: Neil Carias MD Admit Status: From the Emergency Department Chief Complaint: leg pain History of Present Illness: 31yoF with minimal past medical history present with leg pain with imaging consistent with tibia fibula fracture. Patient states that she was in her normal state of health and was playing on the playground with her son prior to presentation. They went down a fast slide together, she was trying to slow them down, and she caught her leg at the bottom of the slide and it bent "outward". She was brought into the ED with imaging with impression of distal fibular fraction with extension to the tibiofibular syndesmosis with fracture of distal tibial shaft. Dr. Carias was consulted and will see the patient with likely plans for surgical management 10/13/2016. Review of Systems: complete review of systems obtained. positive as per hpi otherwise negative Allergies Coded Allergies: venlafaxine (Verified Adverse Reaction, Unknown, 05/24/16) Homicidal ideation Home Medications As per med rec previous Divalproex Naproxen Prazosin vitamin When asked patient she is unaware of her medications however does remember atomoxetine Medications will require review with pharmacy in the morning PMH Bipolar disorder with history of depression. - this diagnosis has been removed ADHD History of rectal and vaginal tear Surgical History D&C Vaginal / rectal reconstruction at Family History No family history of joint / bone disorders Social History Occupation: Stay at home mother Hx Alcohol Use: Yes (occasional) Hx Substance Use: Yes (marijuana) Smoking Status: Former Smoker Exam Vital Signs Vital Sign - Last Date Time Temp Pulse Resp B/P Pulse Ox O2 Delivery O2 Flow Rate FiO2 10/12/16 16:22 36.2 74 18 122/62 100 Room Air Exam General: A&O, No acute distress, well-developed, well-nourished, appropriately interactive Eyes: PERRLA, EOMI, anicteric sclera, mildly injected conjunctiva HENT: Normocephalic, atraumatic. Moist mucous membranes Neck: Supple with full range of motion. No jugular venous distension. No bruits. No thyromegaly. Cardiovascular: Regular rate and rhythm with no murmurs, rubs, or gallops appreciated Pulmonary: clear to auscultation bilateral, Normal respiratory effort with no use of accessory muscles. Abdomen: Bowel tones present. Soft, nontender, nondistended. No hepatosplenomegaly or masses appreciated. Extremities: No clubbing, cyanosis, edema, or lymphadenopathy appreciated. Left lower extremity in brace, sensation and pulse intact Skin: Normal temperature, turgor, and texture; no rash, ulcers, or subcutaneous nodules appreciated. Neurological: Nonfocal neurologic exam, no tremors noted, able to move all extremities spontaneously Psychiatric: Normal mood and affect. Alert and oriented to person, place, and time. Lab and Diagnostics Labs Pending X-Rays, CTs and MRIs Patient Name: LOBO DEVI MR#: [id number] Location: SED Ordering Phys: Gilberto Wilburn MD Date of Service: 10/12/161657 PROCEDURE: X-RAY LEFT ANKLE, MINIMUM THREE VIEWS ([id number]) INDICATIONS: trauma TECHNIQUE: 3 views of the ankle were acquired. COMPARISON: [facility], CR, XR TIBIA FIBULA 2VW LT, 10/12/2016, 16: 22. FINDINGS: Bones: There is a mildly displaced spiral fracture of the distal tibial shaft. There is also a mildly displaced spiral fracture of the distal fibula involving the lateral malleolus with extension to the distal tibiofibular syndesmosis. The ankle mortise demonstrates preserved alignment. Soft tissues: Soft tissue swelling is present over the lateral malleolus. There is a small tibiotalar joint effusion. IMPRESSION: 1. Fracture of the distal fibula with extension to the tibiofibular syndesmosis. 2. Fracture of the distal tibial shaft. Dictated by: Michael Wallace M.D. on 10/12/2016 at 17:57 Approved by: Michael Wallace M.D. on 10/12/2016 at 17:58 Patient Name: LOBO DEVI MR#: [id number] Location: SED Ordering Phys: Gilberto Wilburn MD Date of Service: 10/12/161657 PROCEDURE: X-RAY LEFT TIBIA/FIBULA, TWO VIEWS ([id number]) INDICATIONS: trauma TECHNIQUE: 2 views of the tibia and fibula were acquired. COMPARISON: [facility], CR, XR TIBIA FIBULA 2VW LT, 10/12/2016, 16: 22. [facility], CR, XR ANKLE 3VW LT, 10/12/2016, 16:57. FINDINGS: Bones: There is a mild displaced spiral fracture of the mid to distal tibial shaft with slight lateral and posterior displacement of the distal component. There is also a mildly displaced spiral fracture of the distal fibula involving the lateral malleolus with extension to the distal tibiofibular syndesmosis. Soft tissues: No suspicious soft tissue calcifications or masses. IMPRESSION: 1. Fractures of the tibia and fibula as described. Dictated by: Michael Wallace M.D. on 10/12/2016 at 17:59 Approved by: Michael Wallace M.D. on 10/12/2016 at 18:00 Patient Name: LOBO DEVI MR#: [id number] Location: [facility] Ordering Phys: Gilberto Wilburn MD Date of Service: 10/12/16 1621 PROCEDURE: X-RAY LEFT TIBIA/FIBULA, TWO VIEWS ([id number]) INDICATIONS: trauma TECHNIQUE: 2 views of the tibia and fibula were acquired. COMPARISON: None. FINDINGS: Bones: There is a mild displaced spiral fracture of the tibial shaft. There is also a mildly displaced spiral fracture of the distal fibula involving the lateral malleolus. Soft tissues: No suspicious soft tissue calcifications or masses. IMPRESSION: 1. Mildly displaced spiral fractures of the tibia and fibula. Dictated by: Michael Wallace M.D. on 10/12/2016 at 17:48 Approved by: Michael Wallace M.D. on 10/12/2016 at 17:49 Assessment & Plan 31yoF with minimal past medical history present with leg pain with imaging consistent with tibia fibula fracture. Tibia/fibula fracture, acute, POA -secondary to trauma -orthopedic surgery consulted, recs appreciated -NPO at midnight for likely surgical repair 10/13, mIVF -pain management with oxycodone PRN, hydromorphone breakththrough -bowel regimen Thrombocytopenia, unknown chronicity -continue to monitor -review medications, pharmacy consultation, medication review ADHD, chronic, POA -continue home medication Patient will be admitted under inpatient status and will be admitted for greater than 2 days due to severity of illness. Pain Evaluation: Adequate Pain Control GI Prophylaxis: Not indicated VTE Prophylaxis: Sub-Q Heparin (Unfractionated) Resuscitation Status: CPR: Attempt Resuscitation Flaca Barahona DO Oct 12, 2016 18:55
[2016-10-12] MEDS ORDERED: Polyethylene Glycol (PEG) 17 Gm Powder PO PRN (19:00)
[2016-10-12] MEDS ORDERED: Alum-Mag Hydrox-Simeth 30 mL Suspension PO PRN (19:00)
[2016-10-12 19:11] VITALS: BP 118/61; PULSE 90; RESP 17; O2SAT 100
[2016-10-12 19:11] LABS: BASOPHILS % (AUTO) 0.5 % (0-3); Mean Corpuscular Hemoglobin 29.2 pg (27.0-35.0); Mean Corpuscular Volume 88.8 fL (81-100); Platelet Count 134 bil/L (150-400)
[2016-10-12 19:23] VITALS: BP 118/61; PULSE 90; RESP 17; O2SAT 100
--- NOTE | 2016-10-12 19:54 | CONS ---
[address] [address] CONSULTATION REPORT PATIENT: LOBO DEVI : 1985 MR#: [id number] ADMIT: 10/12/2016 JOB ID: [id number] PREOPERATIVE HISTORY AND PHYSICAL: DATE OF SERVICE: 10/12/2016 CHIEF COMPLAINT: This is a healthy 31-year-old female who was coming down a slide, sustained a twisting injury, and she sustained a right distal one-third tibial fracture and lateral malleolar fracture. The patient was noting that she had some crepitation of the leg at the time of the injury. She denies any other injuries. Patient was brought to the emergency room via EMS. MEDICATIONS: Include divalproex as well as prazosin. She takes vitamins, but states she is not . Has occasional naproxen as needed for discomfort. ALLERGIES: VENLAFAXINE. PAST MEDICAL HISTORY: She has had a history of bipolar disorder with history of depression, but she is fine now. History of prior rectal and vaginal tear. PRIOR SURGERIES: She has had an . FAMILY HISTORY: Noncontributory. SOCIAL HISTORY: Former smoker. The patient is , a local resident. 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 REVIEW OF SYSTEMS: HEENT: No blurring of vision. No decreased hearing. Respiratory: No shortness of breath. Cardiovascular: No chest pain. GI: No nausea, vomiting. : No dysuria. Musculoskeletal: Pain in the left leg and left ankle. Hematologic: No easy bleeding or bruising. Psychiatric: No acute anxiety or depression at this time. Her current child is two years of age. Neurologic: No headache or dizziness. PHYSICAL EXAMINATION: Vital signs: Height 165 cm, 63.64 kg female. Temperature 36.2, pulse 74, respirations 18, blood pressure 122/62, pulse ox of 100. HEENT: Within normal limits. Neck is supple. Lungs: Clear to P and A. Heart: Regular rate, rhythm. Abdomen is soft, nontender. and rectal deferred. Musculoskeletal: Left leg, she has 1+ swelling over the distal third of the tibia and over the lateral malleolus. Peripheral pulses are full. Motor and sensory are intact. No acute pain over the knee. The tibia and fibula did not appear to be grossly unstable, but one can still feel some crepitation with lifting the leg prior to splinting. Skin is intact. She does have multiple tattoos on her upper body. Neuro: Oriented x3. Cranial nerves 2-12 intact. LABORATORY: Laboratory testing was held. I have asked that they do a CBC with diff, as well as a urine test. X-RAYS: A spiral left distal one-third tibial fracture and oblique fracture of the lateral malleolus. No significant angulation on AP or lateral views, just mild displacement with a spiral rotation. IMPRESSION: Left distal one-third tibial spiral fracture and lateral malleolar fracture. PLAN: I have explained the risks and benefits of surgery to the patient. We will plan for intramedullary ebenezer fixation of the tibial fracture and fixation of the lateral malleolar fracture. I have explained the risks for bleeding, infection, pain, and stiffness, possibility for damage to surrounding neurovascular structures, potential for delayed union, nonunion, malunion, and hardware failure as well as potential for additional surgery. Surgical consent has been signed. I did supervise some additional x-rays on the patient's leg as well as I did place her in a long-leg sugar-tong and posterior splint and she seems to be relatively comfortable at this time. The patient seems to be comfortable at this time.
[2016-10-12 20:15] VITALS: BP 109/67; PULSE 73; RESP 16; O2SAT 94
[2016-10-12] MEDS ORDERED: CETI10CA PO (20:19)
[2016-10-12] MEDS ORDERED: MULT-1018 PO (20:19)
[2016-10-12] MEDS ORDERED: ATOM40 PO (20:19)
[2016-10-12] MEDS ORDERED: GUAN1TAB26 PO (20:19)
--- NOTE | 2016-10-12 20:35 | NUR ---
Admit Note Pt. arrived on floor at 1910. Pt. was groggy, but oriented x3. Pt. rated pain 4/10. Pt's peripheral IV intact and patent. Left leg propped us per Dr. Carias's request. Will continue to monitor.
[2016-10-13] VITALS (14 sets, daily range): BP systolic 101–130; BP diastolic 52–87; PULSE 69–100; RESP 10–18; O2SAT 96–100
--- NOTE | 2016-10-13 00:40 | NUR ---
Update Pt. decided to take home meds (Guanfacine and Strattera) without it being ordered by . Boyfriend stated "disregard it. You guys were taking too long. I brought her home medications and gave them to her". Boyfriend stated he only brought one dose, and did not have the bottles of medications with him. However, when Jerica GALLO came in to re-educated pt. and boyfriend on policy on medications. Pt. tried to take a Bendaryl from her purse, and when Jerica GALLO asked to take Benadryl from pt. Pt. gave it to her boyfriend who would not let go. Pt. is crying profusely in the room, and is not letting staff in room. retort unloader and Brooklyn GARCIA aware of incident. retort unloader re-iterated policy.
[2016-10-13] MEDS ORDERED: diphenhydrAMINE 25 mg Capsule PO PRN (00:45)
--- NOTE | 2016-10-13 00:57 | NUR ---
Pain Pt. felt that IV Dilaudid was insufficient for pain. Pt. states "it wares off fast, and I do not want to take it". Brooklyn GARCIA ordered PO Benadryl, and changed order for IV Dilaudid. Brooklyn GARCIA also paged for an order for IV Toradol. Will continue to monitor.
[2016-10-13] MEDS: Sodium Chloride LOK Flush 10 mL Syringe IVFLUSH SCH ×3 (01:05→16:30)
[2016-10-13] MEDS: 0.9% Sodium Chloride 1,000 ML IV SCH ×2 (01:05→20:09)
[2016-10-13] MEDS: Acetaminophen IV 1,000 MG in IV Premix 1 EACH IV PRN ×3 (03:30→23:18)
[2016-10-13] MEDS: HYDROmorphone 1 mg/mL Inj IVPUSH PRN ×4 (03:43→19:26)
[2016-10-13] MEDS ORDERED: HYDROmorphone 1 mg/mL Inj IVPUSH ONE (10:38)
[2016-10-13] MEDS ORDERED: Lactated Ringer's 1,000 ML IV SCH (11:47)
[2016-10-13] MEDS ORDERED: Lactated Ringer's 500 ML IV PRN (11:47)
[2016-10-13] MEDS ORDERED: Ondansetron 2 mg/mL 2 mL Inj IVPUSH PRN (11:50)
[2016-10-13] MEDS ORDERED: HYDROmorphone 1 mg/mL Inj IVPUSH PRN (11:50)
[2016-10-13] MEDS ORDERED: EPHEDrine Sulfate 50 mg/mL Inj IVPUSH PRN (11:50)
[2016-10-13] MEDS ORDERED: Phenylephrine 10,000 mCg/mL Inj IVPUSH PRN (11:50)
[2016-10-13] MEDS ORDERED: Dexamethasone 4 mg/mL Inj IVPUSH PRN (11:50)
[2016-10-13] MEDS ORDERED: MetoCLOpramide 5 mg/mL 2 mL Inj IVPUSH PRN (11:50)
--- NOTE | 2016-10-13 11:54 | PCM.HPANE ---
Patient Data Surgeon Admitting Provider:Jackelin Johnson MD Attending Provider:Jackelin Johnson MD Primary Care Physician:Rahat Meeks DO Other Provider: Reason for Visit Left Tib/Fib Fx Ht/WT & BMI Height (Feet): 5 Height (Inches): 5.00 Weight (Kilograms): 63.600 Body Mass Index 23.36 Allergies Coded Allergies: venlafaxine (Verified Adverse Reaction, Unknown, 05/24/16) Homicidal ideation Past Anesthesia History Anesthesia History: Denies:: Abnormal Airway, Anesthesia Reactions, Difficult Intubation Diabetes History Hx Diabetes?: No MRSA MRSA: No Medications Hypertension Medication: No Home Meds Incl Beta Rico: No Reported Medications Cetirizine HCl (Zyrtec)10 Mg [id number] Mg PO HS #30 CAPSULE Ref 0 10/12/16 Atomoxetine (Strattera)40 Mg Lbycutg79 Po Bid #60 10/12/16 Multivitamin (Multi Vitamin Daily)1 Each Tablet1 Each PO DAILY 30 Days Ref 0 10/12/16 Guanfacine ER 1 Mg Tab.er.24h1 Po Hs #30 10/12/16 Discontinued Reported Medications Vit#96/Ferrous Fum/FA ( Tablet)1 Each Tablet1 Each PO DAILY 04/18/14 Discontinued Scripts Divalproex ER 500 Mg Tab.er.24h1,000 Mg PO HS 30 Days Prov:Rajiv Solo DO 05/29/16 Prazosin (Minipress)1 Mg Capsule1 Mg PO HS #30 CAPSULE Prov:Rajiv Solo DO 05/29/16 Naproxen 500 Mg Gme676 Mg PO BID PRN For Pain #30 TABLET Ref 0 Prov:Deonte Cabrales DO 06/06/15 History History of ENT Problems?: No HEENT History: Denies:: Abnormal Airway Difficult Intubation Denture Type: None Teeth Condition: Within Normal Limits Hx of Heart Problems?: No Cardiovascular History: Denies:: Congestive Heart Failure Hypertension Hx of Respiratory Problem?: Yes Respiratory History: Denies:: Tuberculosis Other Resp Pertinent History: "sometimes I get wheezy". Hx Neurologic Problems?: No Hx of GI Problems?: No Hx of Problems?: No Female Hx: Denies:: Currently Endometriosis Pelvic Inflammatory Problems with Breasts? Hx Musculoskeletal Problems?: Yes Musculoskeletal History: Positive for:: Musculoskeletal Trauma (Broke leg current visit) Hx of Psycho/Social Problems?: Yes Psycho Social History: Positive for:: Bipolar Disorder Suicide Attempt (OD sleeping pills age 19) Denies:: Anxiety Hx Depression Other Psych Pertinent History: ADHD Hx Surgeries?: Yes (4th degree laceration) Hx Any Other Health Problems?: Yes Other History: Positive for:: Hospitalization (childbirth x3, emergency d&c 5 wks ago ) History Blood Transfusions: Positive for:: Accept Blood Products? Blood Transfusions Denies:: Blood Transfuse Reaction Hx Diabetes: No Occupation: Stay at home mother Hx Alcohol Use: NoHx Substance Use: No Smoking Status: Former Smoker Have You Smoked inLast 12 mo: NoApprox How Many Cigarettes/day: 1 cigarette a day Stop/Bang Treated for Sleep Apnea?: No Do You Have a CPAP Machine?: No S-Snoring: Do You Snore Loudly: Yes T-Tired: feel tired, fatigued: Yes O-Obsered: Observed not breath: No P-Blood Pressure: treated: No B- Body Mass Index > 35 kg/m2: No A- Age over 50: No N- Neck Large Circumference: No G- Gender Male: No LORENA Total Score: 2 LORENA Risk Assessment: Low Risk, <3 Yes Risk Assessment Category Category 1A: Patient has history of documented sleep apnea, and HAS NOT received any narcotic, sedative or anesthesia administration during this stay. Category 1B: Patient has history of documented sleep apnea, and HAS received any narcotic , sedative or anesthesia administration during this stay Category 2: Patient has SUSPECTED Obstructive Sleep Apnea, and HAS received any narcotic , sedative or anesthesia administration during this stay. Category 3: Patient has SUSPECTED Obstructive Sleep Apnea and HAS NOT received narcotic, sedative or anesthesia administration during this stay. Category 4: Outpatient in Procedural Areas with known sleep apnea or who screen positive for High Risk via the STOP/BANG questionnaire. Exam Exam Vital Signs Vital Signs Date Time Temp Pulse Resp B/P Pulse Ox O2 Delivery O2 Flow Rate FiO2 10/13/16 08:09 36.7 95 18 102/64 99 10/13/16 05:48 36.9 81 16 118/71 98 Room Air General Appearance: Oriented X3 HEENT/AIRWAY: MP 2 Lungs: Normal Air Movement Heart: Regular Rate/Rhythm Meds/Labs/Diagnostics Admission Meds Current Medications Ketorolac Tromethamine (Toradol Inj) 30 mg ONCE ONCE IVPUSH Last administered on 10/12/16 17:00; Start 10/12/16 at 16:35; Stop 10/12/16 at 16:37; Status DC Lorazepam (Ativan Inj) 2 mg ONCE ONCE IVPUSH Last administered on 10/12/16 17: 21; Start 10/12/16 at 17:05; Stop 10/12/16 at 17:06; Status DC Diphenhydramine HCl (Benadryl Inj) 25 mg ONCE ONCE IVPUSH Last administered on 10/12/16 19:04; Start 10/12/16 at 18:25; Stop 10/12/16 at 18:26; Status DC Sodium Chloride 10 ml 10 ml EDMAR IVFLUSH Last administered on 10/13/16 01:05; Start 10/13/16 at 00:30 Sodium Chloride (Normal Saline) 1,000 ml @ 80 mls/hr [id number] IV Last administered on 10/13/16 01:05; Start 10/12/16 at 23:59 Atomoxetine HCl (Strattera) 40 mg BID PO Last administered on 10/13/16 08:31; Start 10/12/16 at 23:40 Hydromorphone HCl (Dilaudid Inj) 1 mg NOW ONCE IVPUSH Last administered on 10/13 10:40; Start 10/13/16 at 10:38; Stop 10/13/16 at 10:39; Status DC Labs Test 10/12/16 16:40 White Blood Count 5.8th/mm3 (3.8-10.1) Red Blood Count 4.66mil/mm3 (3.90-5.20) Hemoglobin 13.6g/dL (12.0-15.6) Hematocrit 41.4% (35.0-46.0) Mean Corpuscular Volume 88.8fL (81-100) Mean Corpuscular Hemoglobin 29.2pg (27.0-35.0) Mean Corpuscular Hemoglobin Concent 32.9% (32.0-37.0) Red Cell Distribution Width 14.0% (12.3-15.4) Platelet Count 134bil/L (150-400) Neutrophils (%) (Auto) 54.0% (40-74) Lymphocytes (%) (Auto) 31.2% (14-46) Monocytes (%) (Auto) 7.0% (4-12) Eosinophils (%) (Auto) 7.0% (0-5) Basophils (%) (Auto) 0.5% (0-3) Hold Purple Top Tube Received (Received) Hold Blue Top Tube Received (Received) Sodium Level 140mEq/L (134-144) Potassium Level 4.2mEq/L (3.5-5.2) Chloride Level 103mEq/L (97-108) Carbon Dioxide Level 23mmol/L (18-29) Blood Urea Nitrogen 12mg/dL (6-20) Creatinine 0.65mg/dL (0.57-1.00) Estimat Glomerular Filtration Rate 151mL/min (>59) Glucose Level 101mg/dL (60-99) Calcium Level 9.5mg/dL (8.5-10.1) Total Bilirubin 0.2mg/dL (0.0-1.2) Aspartate Amino Transf (AST/SGOT) 34U/L (0-50) Alanine Aminotransferase (ALT/SGPT) 29U/L (0-32) Alkaline Phosphatase 49U/L (25-150) Total Protein 7.5g/dL (6.4-8.4) Albumin 4.5g/dL (3.4-5.0) Hold Tribune Top Tube Received (Received) Plan Impression Patient chart reviewed, patient interviewed and anesthestic plan with risks, benefits, and alternatives discussed, and informed consent obtained. ASA Physical Status: ASA2 Mod Systemic Disease Anesthetic Plan: GA Bene/Risks/Altern/Consents: Yes HP Complete Prior to Induction: Yes Alvarez Ramirez MD Oct 13, 2016 11:53
--- NOTE | 2016-10-13 12:17 | NUR ---
to OR Pt taken to OR A&OX4, SL, left left Fx and splinted with RANJIT wrap. Tearful and anxious at times. at bedside.
[2016-10-13] MEDS ORDERED: Bupivacaine-MPF 0.5% W/EPI 30 mL Inj INFILTRATE ONE (13:25)
[2016-10-13] MEDS ORDERED: Heparin 5,000 Unit/mL Inj SUBQ SCH (16:30)
--- NOTE | 2016-10-13 16:54 | NUR ---
Social Work: Screening D: EMR reviewed. Pt is a 31 y/o female admitted for left tib/fib fx per H&P. Per MD in AM multi-disciplinary rounds, pt to go to OR today. SW attempted to meet with pt to discuss advanced directive ppw. Pt was in OR at time of visit. Pt's insurance is [employer] and PCP is Rahat Meeks DO. Pt's listed NOK is sister, Jesseina Bourne ([phone]). SW screened pt's EMR and worked with medical team in AM multi-disciplinary rounds to determine pt does not have any SW discharge needs at this time. SW will meet with pt once pt is out of OR to further assess needs based on MH hx in H&P. SW will continue to follow. A: Pt who is independent at baseline - see MH hx in H&P P: SW to follow-up with pt after OR to determine potential needs at discharge. Kerry Jose MSW
[2016-10-13] MEDS ORDERED: Propofol 10,000 mCg/mL 20 mL Inj ONE ×2 (17:34)
[2016-10-13] MEDS ORDERED: Ondansetron 2 mg/mL 2 mL Inj ONE (17:34)
[2016-10-13] MEDS ORDERED: Dexamethasone 4 mg/mL Inj ONE (17:34)
[2016-10-13] MEDS ORDERED: MetoCLOpramide 5 mg/mL 2 mL Inj ONE ×2 (17:34)
[2016-10-13] MEDS ORDERED: HYDROmorphone 1 mg/mL Inj ONE (17:34)
--- NOTE | 2016-10-13 17:44 | PCM.PNMED ---
Subjective Date of Service Oct 13, 2016 Exam Vital Signs Vital Sign - Last Date Time Temp Pulse Resp B/P Pulse Ox O2 Delivery O2 Flow Rate FiO2 10/13/16 08:09 36.7 95 18 102/64 99 10/13/16 05:48 Room Air Intake and Output 10/12/16 10/12/16 10/13/16 Cumulative From/Thru 15:00 23:00 07:00 10/12/16 16:22 - 10/13/16 05:48 Intake Total 518 ml 518 ml Output Total 300 ml 300 ml Balance 218 ml 218 ml Intake Oral 518 ml 518 ml Output Urine Total 300 ml 300 ml # Voids 1 1 # Bowel Movements 0 0 Lab and Diagnostics Result Diagram: 10/12/16 1640 10/12/16 1640 X-Rays, CTs and MRIs Patient Name: LOBO DEVI MR#: [id number] Location: SED Ordering Phys: Gilberto Wilburn MD Date of Service: 10/12/168 PROCEDURE: X-RAY LEFT ANKLE, MINIMUM THREE VIEWS ([id number]) INDICATIONS: trauma TECHNIQUE: 3 views of the ankle were acquired. COMPARISON: [facility], CR, XR TIBIA FIBULA 2VW LT, 10/12/2016, 16: 22. FINDINGS: Bones: There is a mildly displaced spiral fracture of the distal tibial shaft. There is also a mildly displaced spiral fracture of the distal fibula involving the lateral malleolus with extension to the distal tibiofibular syndesmosis. The ankle mortise demonstrates preserved alignment. Soft tissues: Soft tissue swelling is present over the lateral malleolus. There is a small tibiotalar joint effusion. IMPRESSION: 1. Fracture of the distal fibula with extension to the tibiofibular syndesmosis. 2. Fracture of the distal tibial shaft. Dictated by: Michael Wallace M.D. on 10/12/2016 at 17:57 Approved by: Michael Wallace M.D. on 10/12/2016 at 17:58 Patient Name: LOBO DEVI MR#: [id number] Location: SED Ordering Phys: Gilberto Wilburn MD Date of Service: 10/12/168 PROCEDURE: X-RAY LEFT TIBIA/FIBULA, TWO VIEWS ([id number]) INDICATIONS: trauma TECHNIQUE: 2 views of the tibia and fibula were acquired. COMPARISON: [facility], CR, XR TIBIA FIBULA 2VW LT, 10/12/2016, 16: 22. [facility], CR, XR ANKLE 3VW LT, 10/12/2016, 16:57. FINDINGS: Bones: There is a mild displaced spiral fracture of the mid to distal tibial shaft with slight lateral and posterior displacement of the distal component. There is also a mildly displaced spiral fracture of the distal fibula involving the lateral malleolus with extension to the distal tibiofibular syndesmosis. Soft tissues: No suspicious soft tissue calcifications or masses. IMPRESSION: 1. Fractures of the tibia and fibula as described. Dictated by: Michael Wallace M.D. on 10/12/2016 at 17:59 Approved by: Michael Wallace M.D. on 10/12/2016 at 18:00 Patient Name: LOBO DEVI MR#: [id number] Location: [facility] Ordering Phys: Gilberto Wilburn MD Date of Service: 10/12/16 1621 PROCEDURE: X-RAY LEFT TIBIA/FIBULA, TWO VIEWS ([id number]) INDICATIONS: trauma TECHNIQUE: 2 views of the tibia and fibula were acquired. COMPARISON: None. FINDINGS: Bones: There is a mild displaced spiral fracture of the tibial shaft. There is also a mildly displaced spiral fracture of the distal fibula involving the lateral malleolus. Soft tissues: No suspicious soft tissue calcifications or masses. IMPRESSION: 1. Mildly displaced spiral fractures of the tibia and fibula. Dictated by: Michael Wallace M.D. on 10/12/2016 at 17:48 Approved by: Michael Wallace M.D. on 10/12/2016 at 17:49 Assessment & Plan Has not yet returned from surgery so not seen today GI Prophylaxis: Not indicated VTE Prophylaxis: Sub-Q Heparin (Unfractionated) VTE Mechanical Devices: Intermittant Pneumatic CD Resuscitation Status: CPR: Attempt Resuscitation Jackelin Johnson MD Oct 13, 2016 17:44
--- NOTE | 2016-10-13 18:49 | PCM.ANEP1 ---
Post Anesthesia PACU Phase 1 Assessment Vital Signs Vital Signs Date Time Temp Pulse Resp B/P Pulse Ox O2 Delivery O2 Flow Rate FiO2 10/13/16 18:45 69 10 106/59 100 Simple Mask 10 10/13/16 18:42 36.8 70 10 103/68 100 Simple Mask 10 Anesthetic Administered: GA Level of Alertness: Sleepy, easy to arouse Pain: No Pain Scale Score: 8 Nausea or Vomiting: No CV Function & Hydration Stable: Yes Airway Device: Lungs: Normal Air Movement PACU Phase 2 Assessment Patient Instructions Provided: N/A Alvarez Ramirez MD Oct 13, 2016 18:49
[2016-10-13] MEDS ORDERED: hydrOXYzine Pamoate 25 mg Capsule PO PRN (18:50)
[2016-10-13] MEDS ORDERED: Polyethylene Glycol (PEG) 17 Gm Powder PO PRN (18:50)
[2016-10-13] MEDS: Dextrose 5% 500 ML IV SCH (18:50)
[2016-10-13] MEDS ORDERED: Sodium Biphos-Phos 133 mL Enema RECTAL PRN (18:50)
[2016-10-13] MEDS ORDERED: Magnesium Hydroxide 10 mL Oral Concentration PO PRN (18:50)
[2016-10-13] MEDS: fentaNYL-PF 50 mCg/mL 2 mL Inj IVPUSH PRN ×3 (19:09→19:24)
--- NOTE | 2016-10-13 20:01 | DRSVH ---
PROCEDURE: X-RAY LEFT ANKLE, MINIMUM THREE VIEWS ([id number]) INDICATIONS: s/p ORIF tibia and fibula fx TECHNIQUE: 3 views of the ankle were acquired. COMPARISON: [facility], CR, XR ANKLE 3VW LT, 10/12/2016, 16:57. [facility], CR, XR TIBIA FIBULA 2VW LT, 10/13/2016, 19:16. FINDINGS: Bones: No previously undiagnosed fractures or dislocations. Ankle mortise is normally aligned. No suspicious bony lesions. Normal alignment established after ORIF of distal tibial and fibular fractu res identified 10/12/09. Soft tissues: No tibiotalar joint effusion. Achilles tendon appears normal. IMPRESSION: Excellent anatomic alignment established after distal tibial and fibular diaphyseal and metadiaphyseal junction fractures, respectively, have been reduced and fixed by open procedure. Dictated by: Lennox Berman M.D. on 10/13/2016 at 19:58 Approved by: Lennox Berman M.D. on 10/13/2016 at 19:59
--- NOTE | 2016-10-13 20:02 | DRSVH ---
PROCEDURE: X-RAY LEFT TIBIA/FIBULA, TWO VIEWS ([id number]) INDICATIONS: s/p ORIF tibia and fibula fx TECHNIQUE: 2 views of the tibia and fibula were acquired. COMPARISON: None. FINDINGS: Bones: No previously unrecognized fractures or dislocations. No suspicious bony lesions. Excellent anatomic alignment has been established after ORIF of previously present fractures of the distal tib ia and fibula. Soft tissues: No suspicious soft tissue calcifications or masses. IMPRESSION: Normal anatomic alignment established after oral and. Dictated by: Lennox Berman M.D. on 10/13/2016 at 19:59 Approved by: Lennox Berman M.D. on 10/13/2016 at 20:01
[2016-10-13] MEDS: Morphine PCA 1 mg/mL 30 mL Inj IV PRN (20:10)
[2016-10-13] MEDS ORDERED: ATOMOXETINE 40 MG PO SCH (20:30)
[2016-10-13] MEDS: LORazepam 0.5 mg Tablet PO PRN (20:53)
[2016-10-13] MEDS: Senna-Docusate 8.6-50 mg Tablet PO SCH (20:59)
[2016-10-13] MEDS: GUANFACINE 1 MG PO SCH (21:00)
[2016-10-13] MEDS: diphenhydrAMINE 25 mg Capsule PO PRN (22:06)
--- NOTE | 2016-10-13 23:24 | OP ---
[address] [address] OPERATIVE REPORT PATIENT: LOBO DEVI : 1985 MR#: [id number] ADMIT: 10/12/2016 JOB ID: [id number] DATE OF SURGERY: 10/13/2016 PREOPERATIVE DIAGNOSIS(ES): 1. Left spiral tibial mid to distal third tibial shaft fracture (ICD-10 code S82.202). 2. Displaced left lateral malleolar fracture (ICD-10 code S82.62X). POSTOPERATIVE DIAGNOSIS(ES): 1. Left spiral tibial mid to distal third tibial shaft fracture (ICD-10 code S82.202). 2. Displaced left lateral malleolar fracture (ICD-10 code S82.62X). PROCEDURE: 1. Open reduction and internal fixation with locked IM tibial ebenezer, left spiral mid to distal third tibial shaft fracture (CPT code 93210). 2. Open reduction and internal fixation, left lateral malleolar fracture (CPT Code 53205). SURGEON: Neil Carias MD VIDEO OPERATOR: Radha Meeks PA-C. Radha Meeks was an integral portion of the procedure, helping obtain and maintain reduction and retraction during the procedure. ANESTHESIA: General. ESTIMATED BLOOD LOSS: 200 mL. DRAINS: None. COMPLICATIONS: None. COUNTS: Sponge and needle count correct. IMPLANTS UTILIZED: Synthes titanium cannulated tibial nail. Expert nailing system. A 9 mm diameter by 330 mm length tibial ebenezer, locked proximally and distally; one interlock proximal and two interlocks distal. INDICATIONS: This is a 31-year-old female who was coming down a steep slide on October 12, 2016, sustaining a spiral mid shaft to distal third tibial fracture and a displaced left lateral malleolar fracture. The patient's leg was splinted. She was iced and elevated overnight with plans for surgery today. PROCEDURE IN DETAIL: A well-padded tourniquet was applied to the left thigh. The left leg was prepped and draped in a sterile fashion. After appropriate time-out was called, the leg was elevated and exsanguinated. Tourniquet was inflated to 300 mmHg. An incision was fashioned over the lateral malleolus. Care was taken to protect the superficial peroneal nerve and sural nerve. The incision was carried down to the fibula. The fracture was exposed. Periosteum around the fracture was elevated. The fracture was reduced and held with a bone-holding clamp. It was then transfixed with a 2.7 mm interfragmentary screw over-drilling the proximal cortex. A Synthes locking fibular plate was then temporarily transfixed to the fibula utilizing K-wires. It was then transfixed to the fibula, drilling and filling one of the more proximal screw holes with a 2.7 mm screw. The central screw hole distally was drilled and filled with a nonlocking screw. Several locking screws were placed distally. Please note that there was a small anterior fragment at the level of the syndesmosis and this was captured with the plate and screws. Two additional screws were drilled and filled utilizing 2.7 mm nonlocking screws in the shaft. After the ankle was fixed, the mortise was tested and there did not appear to be any gap at the syndesmosis. The tourniquet was released. Minimal hemostasis was required. The wound was irrigated with saline. The plate was covered with some soft tissue that was amenable to repair with interrupted sutures of 2-0 Vicryl. Subcutaneous layer was closed with interrupted sutures of 3-0 Vicryl and 3-0 Monocryl. A running subcuticular suture of 3-0 Monocryl was utilized. The ends of the suture were brought out through the skin and those will need to be clipped flush with the skin on return to the clinic. A sterile dressing was applied over the ankle wound. Attention was next turned to the tibial shaft. This part of the procedure was performed without a tourniquet. The medial and lateral borders of the patellar tendon were identified, as well as the inferior pole of the patella and the tibial tuberosity. A small midline incision was fashioned with the leg over the triangle arauz with the knee in flexion. The paratenon was split around the patellar tendon and the patellar tendon was incised longitudinally in the midline. A Gelpi retractor was placed underneath the tendon. The fat pad was gently mobilized out of the way. A guide pin was then introduced into the proximal tibia just medial to the lateral tibial spine, angling about 10 degrees posteriorly on the lateral. Please note that I also did utilize a small self-retaining bone clamp through two small incisions over the level of the fracture site to clamp the spiral fracture and help with the reduction. Once the guide pin was introduced, it was then reamed proximally with a larger reamer. A ball-tipped guide was then pre bent at the tip. It was then it introduced down the shaft, across the fracture and into the ankle, down to the subchondral bone. It was measured and it was felt that a 330 mm length ebenezer would be the most optimal. Sequential reaming was then carried out from 8 mm to 10.5 mm. There was chatter noted over the last two reamers. A 9 mm diameter by 330 mm length tibial ebenezer was then introduced into the tibial shaft and then tapped into position. Care was taken for correct rotation of the foot, aligning the knee with the 2nd metatarsal. The guide pin was then subsequently removed and the alignment jig proximally placed. A small stab wound was then placed over one of the proximal static holes, directed from medial to lateral. This was drilled and filled with appropriate cortical screw. The proximal alignment jig was then removed. The proximal guide for the ebenezer was then subsequently removed after first checking good alignment on AP and lateral views with image intensification. The ebenezer was countersunk about 5 mm and a 5 mm proximal tibial ebenezer cap was placed. The leg was then taken out of the flexed position and placed in the horizontal position for the distal interlock screws. The C-arm was then brought into the lateral position making perfect circles distally. A small stab wound incision was placed over the distal medial to lateral interlock screw. Care was taken to protect the saphenous vein. This was more anterior. Utilizing the radiolucent guide, a drill was then tapped into position through the ebenezer and then the drill was attached and drilled to the far cortex. It was measured and appropriate screw length applied. A second small stab incision was placed more proximally over the second medial to lateral screw hole and drilled, measured and appropriate screw length applied. It was felt that there was a good fixation of the ebenezer along the fracture and that it was not distal enough to require an additional third interlocking screw. Permanent x-rays were taken with image intensification. Each of the wounds were irrigated with saline. The small stab wound incisions were closed with a single subcu suture of 3-0 Vicryl. The skin was reapproximated with horizontal mattress sutures of 3-0 nylon. The small central patellar split incision was then repaired. The tendon was repaired with 0 Vicryl. The paratenon was also repaired with 0 Vicryl, the subcutaneous layer with interrupted sutures of 2-0 Vicryl, 3-0 Monocryl and subcuticular suture with 3-0 Monocryl. The ends of the suture were brought out through the skin and those will need to be clipped flush with the skin upon return to clinic. Mastisol and Steri-Strips were applied over the patellar wound, as well as the lateral malleolar wound. Xeroform was placed over all the wounds, dry sterile gauze and ABD pads as well as cast padding. The patient was placed in a well-padded short leg sugar-tong and posterior splint. A bulky sterile dressing was applied around the knee. The patient was taken to the recovery room in stable condition. Sponge and needle counts were correct. There were no complications. Permanent x-rays in the recovery room confirmed good alignment of the fracture. In the recovery room, the patient had good capillary refill and was able to move her toes and had good sensibility. PLAN: The patient has been admitted to the hospital. She will receive physical therapy tomorrow. Pending if she is able to mobilize and be comfortable enough on oral pain medicine, she will be discharged tomorrow, if not the following day. She needs to be seen in the office in two weeks for a wound check and suture removal, as well as x-rays. The patient is to remain strict nonweightbearing. I am also going to discharge her with some Lovenox for DVT prophylaxis. She did receive pre as well as postoperative IV antibiotics. CC: [facility] Orthopedics
[2016-10-14] VITALS (7 sets, daily range): BP systolic 111–121; BP diastolic 61–69; PULSE 84–99; RESP 12–18; O2SAT 97–100
[2016-10-14] MEDS: CeFAZolin Inj 2 GM in IV Premix 1 EACH IV SCH ×3 (00:26→17:08)
[2016-10-14] MEDS: Sodium Chloride LOK Flush 10 mL Syringe IVFLUSH SCH ×3 (00:30→16:30)
[2016-10-14] MEDS: Sodium Chloride LOK Flush 10 mL Syringe IV SCH ×3 (00:30→17:09)
--- NOTE | 2016-10-14 04:43 | NUR ---
Arrival from PACU to Room 1026 Patient arrived from PACU to room 1026 at 1953. Patient stated pain at 10/10 on pain scale. Morphine [employer] P[employer] MEDICINE started and bolus dose given. IV tylenol administered. Neuro checks peformed q 1hour. Left leg elevated. Patient toes are cool to touch but has good cap refill. VSS. Call light within reach. Care continues.
[2016-10-14] MEDS: 0.9% Sodium Chloride 1,000 ML IV SCH ×2 (04:54→13:29)
[2016-10-14] MEDS: LORazepam 0.5 mg Tablet PO PRN ×3 (06:37→23:26)
[2016-10-14 06:39] LABS: BASOPHILS % (AUTO) 0.2 % (0-3); EOSINOPHILS % (AUTO) 1.8 % (0-5); MONOCYTES % (AUTO) 10.5 % (4-12); Mean Corpuscular Volume 90.4 fL (81-100); NEUTROPHILS % (AUTO) 66.5 % (40-74); Platelet Count 132 bil/L (150-400)
[2016-10-14] MEDS: Morphine PCA 1 mg/mL 30 mL Inj IV PRN (07:06)
--- NOTE | 2016-10-14 07:54 | PCM.PNMED ---
Subjective Date of Service Oct 14, 2016 Subjective Complains of severe left leg pain. Since last evening the IV morphine was helping but but since then is not giving pain relief and also to pain relief with Percocet 5 mg. Exam Vital Signs Vital Sign - Last Date Time Temp Pulse Resp B/P Pulse Ox O2 Delivery O2 Flow Rate FiO2 10/14/16 07:17 36.9 84 16 121/61 97 Room Air 10/13/16 18:50 10 Intake and Output 10/13/16 10/13/16 10/14/16 Cumulative From/Thru 15:00 23:00 07:00 10/12/16 16:22 - 10/14/16 06:20 Intake Total 800 ml 0 ml 245 ml 1563 ml Output Total 1345 ml 1645 ml Balance 800 ml -1345 ml 245 ml -82 ml Intake Oral 0 ml 518 ml IV Total 800 ml 245 ml 1045 ml Output Urine Total 1145 ml 1445 ml Estimated Blood Loss 200 ml 200 ml # Voids 1 # Bowel Movements 0 Exam General: Alert and oriented, no acute distress Heart: Regular Lungs: Clear Extremities: No pedal edema, left leg in cast IVs and Medications Medications Reviewed: Medications were reviewed in detail Lab and Diagnostics Result Diagram: 10/14/16 0610 10/12/16 1640 X-Rays, CTs and MRIs Patient Name: LOBO DEVI MR#: [id number] Location: [facility] Ordering Phys: Gilberto Wilburn MD Date of Service: 10/12/16 1658 PROCEDURE: X-RAY LEFT ANKLE, MINIMUM THREE VIEWS ([id number]) INDICATIONS: trauma TECHNIQUE: 3 views of the ankle were acquired. COMPARISON: [facility], CR, XR TIBIA FIBULA 2VW LT, 10/12/2016, 16: 22. FINDINGS: Bones: There is a mildly displaced spiral fracture of the distal tibial shaft. There is also a mildly displaced spiral fracture of the distal fibula involving the lateral malleolus with extension to the distal tibiofibular syndesmosis. The ankle mortise demonstrates preserved alignment. Soft tissues: Soft tissue swelling is present over the lateral malleolus. There is a small tibiotalar joint effusion. IMPRESSION: 1. Fracture of the distal fibula with extension to the tibiofibular syndesmosis. 2. Fracture of the distal tibial shaft. Dictated by: Michael Wallace M.D. on 10/12/2016 at 17:57 Approved by: Michael Wallace M.D. on 10/12/2016 at 17:58 Patient Name: LOBO DEVI MR#: [id number] Location: SED Ordering Phys: Gilberto Wilburn MD Date of Service: 10/12/16 1658 PROCEDURE: X-RAY LEFT TIBIA/FIBULA, TWO VIEWS ([id number]) INDICATIONS: trauma TECHNIQUE: 2 views of the tibia and fibula were acquired. COMPARISON: [facility], CR, XR TIBIA FIBULA 2VW LT, 10/12/2016, 16: 22. [facility], CR, XR ANKLE 3VW LT, 10/12/2016, 16:57. FINDINGS: Bones: There is a mild displaced spiral fracture of the mid to distal tibial shaft with slight lateral and posterior displacement of the distal component. There is also a mildly displaced spiral fracture of the distal fibula involving the lateral malleolus with extension to the distal tibiofibular syndesmosis. Soft tissues: No suspicious soft tissue calcifications or masses. IMPRESSION: 1. Fractures of the tibia and fibula as described. Dictated by: Michael Wallace M.D. on 10/12/2016 at 17:59 Approved by: Michael Wallace M.D. on 10/12/2016 at 18:00 Patient Name: LOBO DEVI MR#: [id number] Location: SED Ordering Phys: Gilberto Wilburn MD Date of Service: 10/12/16 1621 PROCEDURE: X-RAY LEFT TIBIA/FIBULA, TWO VIEWS ([id number]) INDICATIONS: trauma TECHNIQUE: 2 views of the tibia and fibula were acquired. COMPARISON: None. FINDINGS: Bones: There is a mild displaced spiral fracture of the tibial shaft. There is also a mildly displaced spiral fracture of the distal fibula involving the lateral malleolus. Soft tissues: No suspicious soft tissue calcifications or masses. IMPRESSION: 1. Mildly displaced spiral fractures of the tibia and fibula. Dictated by: Michael Wallace M.D. on 10/12/2016 at 17:48 Approved by: Michael Wallace M.D. on 10/12/2016 at 17:49 Assessment & Plan 31yoF with minimal past medical history present with leg pain with imaging consistent with tibia fibula fracture. 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
[2016-10-14] MEDS ORDERED: DIVA500T14 PO (08:06)
[2016-10-14] MEDS ORDERED: PRAZ1CAP PO (08:06)
--- NOTE | 2016-10-14 08:15 | NUR ---
COOKER SODA COOKER SODA increased from 1mg every 10 minutes to 1.5mg every 10 minutes per protocol. Patient denies nausea at this time. Patient repositions self for comfort. Call light and tray table within reach. Will continue to monitor patient hourly.
[2016-10-14] MEDS: Senna-Docusate 8.6-50 mg Tablet PO SCH ×2 (08:20→20:54)
[2016-10-14] MEDS ORDERED: hydrOXYzine Pamoate 25 mg Capsule PO PRN (08:53)
--- NOTE | 2016-10-14 08:57 | PCM.PNORTH ---
Subjective Date of Service: Oct 14, 2016 Visit Information: Reason for Visit Left Tib/Fib Fx Surgery/Surgery Date ORIF LEFT TIB/FIB 10/13/16 Post-Op Day # 1 Date of Admission: Oct 12, 2016 at 18:26 Hospital Day # Subjective Patient complains of pain throughout the left leg. She does not understand why her knee hurts as well as ankle. She states she was rather painful last night. She denies any tingling or numbness. Patient states that she has not been on Depakote for a couple of months. She normally takes Strattera. The lorazepam has been helpful. Postop General: No Shortness of Breath, No Chest Pain Pain Management: PO, DOG HANDLER OR TRAINER without Basal Objective Exam Objective Patient is seen sitting up in bed with the left leg elevated on pillows Vital Signs and I/O Vital Sign - Last Date Time Temp Pulse Resp B/P Pulse Ox O2 Delivery O2 Flow Rate FiO2 10/14/16 07:17 36.9 84 16 121/61 97 Room Air 10/13/16 18:50 10 Intake and Output 10/13/16 10/13/16 10/14/16 Cumulative From/Thru 15:00 23:00 07:00 10/12/16 16:22 - 10/14/16 06:20 Intake Total 800 ml 0 ml 245 ml 1563 ml Output Total 1345 ml 1645 ml Balance 800 ml -1345 ml 245 ml -82 ml Intake Oral 0 ml 518 ml IV Total 800 ml 245 ml 1045 ml Output Urine Total 1145 ml 1445 ml Estimated Blood Loss 200 ml 200 ml # Voids 1 # Bowel Movements 0 Lab & Micro Results Laboratory Tests Test 10/14/16 06:10 White Blood Count 5.5th/mm3 (3.8-10.1) Red Blood Count 3.35mil/mm3 (3.90-5.20) Hemoglobin 9.7g/dL (12.0-15.6) Hematocrit 30.3% (35.0-46.0) Mean Corpuscular Volume 90.4fL (81-100) Mean Corpuscular Hemoglobin 29.0pg (27.0-35.0) Mean Corpuscular Hemoglobin Concent 32.0% (32.0-37.0) Red Cell Distribution Width 13.6% (12.3-15.4) Platelet Count 132bil/L (150-400) Neutrophils (%) (Auto) 66.5% (40-74) Lymphocytes (%) (Auto) 20.8% (14-46) Monocytes (%) (Auto) 10.5% (4-12) Eosinophils (%) (Auto) 1.8% (0-5) Basophils (%) (Auto) 0.2% (0-3) Result Diagram: 10/14/16 0610 10/12/16 1640 General Appearance: Alert, Oriented X3, Cooperative, No Acute Distress Extremities: Distal Pulses Palpable Postop Sensory Motor: Distal Motor Intact, Movement in Toes, NVI Distally SURGICAL WOUND : Wound Location/Description Left lower extremity: Surgical dressing is clean dry and intact. Patient is able to lift the leg by herself without significant pain. She rolled to the right side of the bed to look at her x-rays on the computer monitor. Activity: Activity per PT Catheters: Urethral 2 Way Reyes Assessment & Plan Impression 1. status post left tibia IM nail POD #1 2. status post left fibula ORIF Problems: Plan Weightbearing: Nonweightbearing left lower extremity with walker or crutches x 6 weeks DVT prophylaxis: Lovenox 30 mg subcutaneous 3 weeks Physical therapy for transfers, crutch training Wound care: Keep splint/dressing clean and dry X-rays were reviewed with the patient. There is an incision at the knee where the ebenezer was placed into the tibia. Fracture site is mid shaft tibia, and there is a surgical incision lateral ankle. Patient is advised that all 3 sites may be painful. She needs to ice all 3 of them and elevate as much as possible for the next couple of weeks. ANAMIKA Reyes now ANAMIKA DOG HANDLER OR TRAINER this morning I will recheck patient this afternoon Discharge medication plan: Percocet 2 every 4 hours not to exceed 8 per day, lorazepam 0.5 mg 3 times a day, Lovenox 30 mgSQ daily 3 weeks. Discharge plan: Discharge home today if patient mobilizes with physical therapy. Patient is having difficulty mobilizing, we will plan for discharge tomorrow Follow-up plan: In 2 weeks at [facility] with PA for wound check and application of short leg cast. Scheduled this appointment on a date when Dr. Carias is also in the office Next appointment will be at [address] Carias with x-rays out of the cast AP and lateral left tibia and 3 view right ankle Pain Management: Morphine DOG HANDLER OR TRAINER, Percocet, Vistaril, lorazepam, Tylenol IV VTE Prophylaxis: Sub-Q Enoxaparin Resuscitation Status: CPR: Attempt Resuscitation [place] PA-C Oct 14, 2016 08:57
[2016-10-14] MEDS: Acetaminophen IV 1,000 MG in IV Premix 1 EACH IV PRN (08:58)
--- NOTE | 2016-10-14 10:45 | NUR ---
Amy Reyes DC'd POD #1.
--- NOTE | 2016-10-14 11:22 | NUR ---
Evaluation completed. Please go to "Notes" then click on "Assessments and Notes" (bottom left corner of screen). Then select appropriate discipline tab on top of screen.
--- NOTE | 2016-10-14 11:57 | NUR ---
Social Work: Readiness for Discharge D: EMR reviewed. Pt is on day 2 of hospitalization. Per MD in AM multi-disciplinary rounds, pt is medically stable and will discharge today. SW received order to coordinate DME for pt's discharge. SW received rx for FWW, wheelchair, and crutches to fax/coordinate for pt. SW met with pt and discussed DME options. SW faxed rx to [facility] to determine cost with insurance. Pt's SO provided rx at pt's request to go to [facility] and research prices for DME. SW will update pt on awad/co-pay for DME at [facility]. SO will update SW if pt finds better awad at [facility]. SW was in room with RN when pt and SO were complaining that pain is not managed at this point and pt's SO stated he was concerned for pt to discharge today due to pain. RN stated she would talk to MD and case management regarding pt's SO concern for pt's pain and discharge. A: Pt who is independent at baseline P: SW to follow-up with pt regarding DME prices/co-pay through [facility]. Pt to discharge home with SO via POV when medically stable. SW will continue to follow. SW anticipates pt to discharge today but pt's SO and pt are expressing concern for discharge due to increased pain. KOKO Gonzalez
[2016-10-14] MEDS: hydrOXYzine Pamoate 25 mg Capsule PO PRN ×3 (14:29→23:56)
[2016-10-14] MEDS: oxyCODONE-Acetamin 10-325 mg Tablet PO PRN ×3 (14:29→23:56)
--- NOTE | 2016-10-14 14:32 | NUR ---
OT evaluation attempted X 2 today. Pain too high both times. Will try again as staffing/scheduling allows. I did provide DME sheet and recommended shower seat with arms. Otto Nugent, OTR/L
[2016-10-14] MEDS: Dextrose 5% 500 ML IV SCH (18:50)
--- NOTE | 2016-10-14 19:51 | NUR ---
Pain Pt having 9/10 pain in left ankle after increase in pain medications this afternoon. Called MD and she prescribed IM medications and came to open cast. Cast was opened, inspected and gauze and ABD replaced. No s/s of compartment syndrome seen. Rewrapped ferdinand and ice bag in place. Medication given. Pt was continuing to have 9/10 pain despite medications, so cast opened and extra guaze placed where pt was saying it hurt, cast also shifted slightly and pt stated there was immediate relief of pain. Rewrapped with Ferdinand and ice in place. Bed in low, call light in reach, care continues.
[2016-10-14] MEDS: Divalproex (QD) 500 mg ER24 Tablet PO SCH ×2 (20:54→21:00)
[2016-10-14] MEDS: GUANFACINE 1 MG PO SCH (21:00)
[2016-10-14] MEDS: diphenhydrAMINE 25 mg Capsule PO PRN (23:26)
[2016-10-15 00:22] VITALS: BP 115/66; PULSE 113; RESP 18; O2SAT 96
[2016-10-15] MEDS: Sodium Chloride LOK Flush 10 mL Syringe IVFLUSH SCH ×3 (00:30→16:30)
[2016-10-15] MEDS: Sodium Chloride LOK Flush 10 mL Syringe IV SCH ×3 (00:30→16:30)
[2016-10-15] MEDS: 0.9% Sodium Chloride 1,000 ML IV SCH ×2 (01:59→14:05)
[2016-10-15] MEDS: hydrOXYzine Pamoate 25 mg Capsule PO PRN ×4 (03:54→16:28)
[2016-10-15] MEDS: oxyCODONE-Acetamin 10-325 mg Tablet PO PRN ×4 (03:55→16:29)
--- NOTE | 2016-10-15 05:31 | NUR ---
Pain Patient's pain level seems to be improving with 2 Percocet q4. Patient remains in a great deal of pain, but keeping her on a consistent time schedule seems to help. Patient stated her IV was giving her pain and really wanted to take it out. IV was Dc'd mid shift. Patient had no IV medications due. Patient running a slight temp this shift, but down to 99.2 at end of shift. Care continues.
[2016-10-15 07:43] VITALS: BP 116/86; PULSE 113; RESP 18; O2SAT 96
[2016-10-15] MEDS: Senna-Docusate 8.6-50 mg Tablet PO SCH (09:14)
[2016-10-15] MEDS: LORazepam 0.5 mg Tablet PO PRN (09:26)
--- NOTE | 2016-10-15 10:37 | PCM.PNORTH ---
Subjective Date of Service: Oct 15, 2016 Visit Information: Reason for Visit Left Tib/Fib Fx Surgery/Surgery Date ORIF LEFT TIB/FIB 10/13/16 Post-Op Day # 2 Date of Admission: Oct 12, 2016 at 18:26 Hospital Day # Subjective Patient complained of increased pain last night. Dr Carias saw patient and adjusted the splint/dressing. Ankle felt better after adjustment. This morning patient is independent with BR and transfers, using FW walker. Postop General: No Shortness of Breath, No Chest Pain Pain Management: PO, IV Push Objective Exam Objective Patient is seen in bed. She is independent with returning from the bathroom with a walker and getting into bed by herself. She appears quite stable with the walker. Vital Signs and I/O Vital Sign - Last Date Time Temp Pulse Resp B/P Pulse Ox O2 Delivery O2 Flow Rate FiO2 10/15/16 07:43 36.4 113 18 116/86 96 Room Air 10/13/16 18:50 10 Intake and Output 10/14/16 10/14/16 10/15/16 Cumulative From/Thru 14:59 22:59 06:59 10/12/16 16:22 - 10/14/16 19:50 Intake Total 1608 ml 1300 ml 4471 ml Output Total 3050 ml 3050 ml 7745 ml Balance -1442 ml -1750 ml -3274 ml Intake Oral 1400 ml 1240 ml 3158 ml IV Total 208 ml 60 ml 1313 ml Output Urine Total 3050 ml 3050 ml 7545 ml Estimated Blood Loss 200 ml # Voids 2 3 # Bowel Movements 0 0 0 Result Diagram: 10/14/16 0610 10/12/16 1640 General Appearance: Alert, Oriented X3, Cooperative, No Acute Distress Extremities: Distal Pulses Palpable Postop Sensory Motor: Distal Motor Intact, Movement in Fingers, NVI Distally, No Numbness/Tingling SURGICAL WOUND : Wound Location/Description Splint and dressing are clean and dry. Ferdinand wraps were rewrapped to better cover the dressing and splint. There is moderate swelling of the foot and ecchymosis, as expected. Incision General Appearance: No Direct Observation Activity: Activity per PT Catheters: None Assessment & Plan Impression 1. status post left tibia IM nail POD #2 2. status post left fibula ORIF Problems: Plan Weightbearing: Nonweightbearing left lower extremity with walker or crutches x 6 weeks DVT prophylaxis: Lovenox 40 mg subcutaneous 3 weeks Patient is independent with transfers and ambulation with a walker. Wound care: Keep splint/dressing clean and dry Hansa instructions: Wrapped small towel at the top of the dressing at the thigh. However the entire leg with a trash bag and tape it closed. Dressing needs to stay clean and dry. Discharge medication plan: Percocet 2 every 4 hours not to exceed 8 per day, lorazepam 0.5 mg 3 times a day, Lovenox 40 mgSQ daily 3 weeks, Keflex 500 mg TID x 5 days Discharge plan: Discharge home today Follow-up plan: In 2 weeks at [facility] with KAYCE for wound check and application of short leg cast. Scheduled this appointment on a date when Dr. Carias is also in the office Next appointment will be at [address] Carias with x-rays out of the cast AP and lateral left tibia and 3 view right ankle Pain Management: Percocet 10/325 mg 2 every 4 hours, morphine IV, Vistaril, lorazepam VTE Prophylaxis: Sub-Q Enoxaparin Resuscitation Status: CPR: Attempt Resuscitation WolbachAnnalee Seay PA-C Oct 15, 2016 10:37
--- NOTE | 2016-10-15 11:23 | PCM.DIORTH ---
Ortho Discharge Instruction Date of Service: Oct 15, 2016 Dates of Hospitalization Date of Hospital Admission Oct 12, 2016 at 18:26 Providers Admitting Physician: Jackelin Johnson MD Primary Care Physician: Rahat Meeks DO Attending Physician: Jackelin Johnson MD Diet Discharge Diet: No restrictions Activity Discharge Activity-General: Try not to overdue (get up only for bathroom or for eating), Elevate & ice extremity, Ice incision 3-5 time/day for 20min Left Lower Extremity: Non-weight Bearing Discharge Assist Device: Front Wheeled Walker, Crutches Dressing and Incisional Care Discharge Dressing Care: Keep dressing clean, dry & intact Discharge Hygiene: May shower (see instructions below) Additional Instructions Discharge Instructions Weightbearing: Nonweightbearing left lower extremity with walker or crutches x 6 weeks DVT prophylaxis: Lovenox 40 mg subcutaneous 3 weeks Wound care: Keep splint/dressing clean and dry Elevate the left leg on pillows with support primarily under the knee and calf Showering instructions: Wrap a small towel at the top of the dressing at the thigh. Cover the entire leg with a trash bag and tape it closed. Dressing needs to stay clean and dry. Discharge medication plan: Percocet 2 every 4 hours not to exceed 8 per day, lorazepam 0.5 mg 3 times a day, Lovenox 40 mgSQ daily 3 weeks, Keflex 500 mg TID x 5 days Follow Up Plan Follow Up Plan Follow-up plan: In 2 weeks at [facility] with PA for wound check and application of short leg cast. Scheduled this appointment on a date when Dr. Carias is also in the office Next appointment will be at [address] Carias with x-rays out of the cast AP and lateral left tibia and 3 view right ankle Call your provider for: Fever, Chills, Shortness of breath, Vomitting Annalee Yoder PA-C Oct 15, 2016 11:23
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
[2016-10-15] MEDS ORDERED: CEFA500C PO (11:31)
[2016-10-15] MEDS ORDERED: OXYC-466 PO (11:31)
[2016-10-15] MEDS ORDERED: ENOX40DI8 SUBQ (11:31)
[2016-10-15] MEDS ORDERED: DIPH25CA6 PO (11:31)
[2016-10-15] MEDS ORDERED: LORA-302 PO (11:31)
--- NOTE | 2016-10-15 11:38 | PCM.DC.ORT ---
Discharge Summary Date of Service: Oct 15, 2016 Date of Hospital Admission: Oct 12, 2016 at 18:26 Date of Surgery: Oct 13, 2016 Date of Discharge: Oct 15, 2016 Reason for Hospitalization: Left tibia and ankle fracture Procedures Performed: Left tibia IM nail, left ankle ORIF Hospital Course: The patient is a 31-year-old female that had an awkward fall on a slide slide injuring the left ankle and leg. She was found to have a spiral fracture of the left tibia and a lateral malleolus ankle fracture. Patient was admitted on 10/12/2016. Hospitalist services was consulted. On 10/13/2016 patient underwent the above procedure. The surgeon was Dr. Carias. Patient tolerated the procedure well and was transferred to PACU. After a period of recovery patient was transferred to [facility]. Pain management was difficult throughout her hospital stay. Patient was initially placed on ARM[employer] S[employer]IOR [employer]GEANT morphine. A Reyes was placed at the time surgery. Reyes was removed on postop day 1. ARM[employer]GEANT was discontinued on postop day 1. DVT prophylaxis consists of Lovenox 40 mg SQ once a day. Pain was managed with morphine sulfate, oxycodone 5 mg, IV Tylenol , Percocet increased to 10 mg, and for anxiety hydroxyzine and lorazepam. Patient is also using Benadryl for itching. IV medication was discontinued last night and a Hep-Lock was discontinued. Patient was seen by PT and OT. On postop day 2 patient was independent with transfers and was able to get up to the bathroom by herself using a walker. Patient was discharged home in stable condition with her spouse to assist in her care. Disposition: Discharged home in stable condition Additional Information Follow-up plan: In 2 weeks at [facility] with KAYCE for wound check and application of short leg cast. Scheduled this appointment on a date when Dr. Carias is also in the office Next appointment will be at [address] Carias with x-rays out of the cast - AP and lateral left tibia and 3 view left ankle Discharge Instructions: Activity Discharge Activity-General: Try not to overdue (get up only for bathroom or for eating), Elevate & ice extremity, Ice incision 3-5 time/day for 20min Left Lower Extremity: Non-weight Bearing Discharge Assist Device: Front Wheeled Walker, Crutches Dressing and Incisional Care Discharge Dressing Care: Keep dressing clean, dry & intact Discharge Hygiene: May shower (see instructions below) Additional Instructions Discharge Instructions Weightbearing: Nonweightbearing left lower extremity with walker or crutches x 6 weeks DVT prophylaxis: Lovenox 40 mg subcutaneous 3 weeks Wound care: Keep splint/dressing clean and dry Elevate the left leg on pillows with support primarily under the knee and calf Showering instructions: Wrap a small towel at the top of the dressing at the thigh. Cover the entire leg with a trash bag and tape it closed. Dressing needs to stay clean and dry. Discharge medication plan: Percocet 2 every 4 hours not to exceed 8 per day, lorazepam 0.5 mg 3 times a day, Lovenox 40 mgSQ daily 3 weeks, Keflex 500 mg TID x 5 day Atomoxetine (Strattera) 40 Mg Capsule 40 PO BID Cefadroxil Hydrate (Cefadroxil) 500 Mg Capsule 500 MG PO Q8H Cetirizine HCl (Zyrtec) 10 Mg Capsule 10 MG PO HS Enoxaparin Sodium (Enoxaparin Sodium) 40 Mg/0.4 Ml Syringe 40 MG SUBQ Q24 Guanfacine ER (Guanfacine ER) 1 Mg Tab.er.24h 1 PO HS Lorazepam (Ativan) 0.5 Mg Tablet 0.5 MG PO TID PRN PRN anxiety Multivitamin (Multi Vitamin Daily) 1 Each Tablet 1 EACH PO DAILY Prazosin (Minipress) 1 Mg Capsule 1 MG PO HS diphenhydrAMINE HCl (Benadryl) 25 Mg Capsule 25 MG PO Q4H PRN PRN For Itching oxyCODONE-Acetaminophen 10-325 mg (oxyCODONE-Acetaminophen 10-325 mg) 1 Each Tablet 2 TAB PO Q4H PRN PRN For Pain Max 8 per day Durable Medical Equipment crutches, walker, wheelchair Annalee Yoder PA-C Oct 15, 2016 11:38
[2016-10-15 14:33] VITALS: BP 122/73; PULSE 104; RESP 18
--- NOTE | 2016-10-15 15:53 | PCM.PNMED ---
Subjective Date of Service Oct 15, 2016 Subjective Refer to the discharge summary from the orthopedic service today. She is seen today to follow-up her left tib-fib fracture, tachycardia and postoperative anemia. Her hemoglobin dropped from 13.6 down to 9.7 postoperatively on October 14. She seems to be doing well although does not speak much when I try to interact with her. Exam Vital Signs Vital Sign - Last Date Time Temp Pulse Resp B/P Pulse Ox O2 Delivery O2 Flow Rate FiO2 10/15/16 10:50 Room Air 10/15/16 07:43 36.4 113 18 116/86 96 10/13/16 18:50 10 Intake and Output 10/14/16 10/14/16 10/15/16 Cumulative From/Thru 15:00 23:00 07:00 10/12/16 16:22 - 10/14/16 19:50 Intake Total 1608 ml 1300 ml 4471 ml Output Total 3050 ml 3050 ml 7745 ml Balance -1442 ml -1750 ml -3274 ml Intake Oral 1400 ml 1240 ml 3158 ml IV Total 208 ml 60 ml 1313 ml Output Urine Total 3050 ml 3050 ml 7545 ml Estimated Blood Loss 200 ml # Voids 2 3 # Bowel Movements 0 0 0 Exam Heart is tachycardic, regular rhythm, no murmur. Lungs are clear to auscultation bilaterally Right leg has no ankle edema Left leg has a bulky dressing/splint from the knee down to the foot. IVs and Medications Medications Reviewed: Medications were reviewed in detail Lab and Diagnostics Result Diagram: 10/14/16 0610 10/12/16 1640 X-Rays, CTs and MRIs Patient Name: LOBO DEVI MR#: [id number] [place] [facility] [place] Phys: Gilberto Wilburn MD Date of Service: 10/12/16 1658 PROCEDURE: X-RAY LEFT ANKLE, MINIMUM THREE VIEWS ([id number]) INDICATIONS: trauma TECHNIQUE: 3 views of the ankle were acquired. COMPARISON: [facility], CR, XR TIBIA FIBULA 2VW LT, 10/12/2016, 16: 22. FINDINGS: Bones: There is a mildly displaced spiral fracture of the distal tibial shaft. There is also a mildly displaced spiral fracture of the distal fibula involving the lateral malleolus with extension to the distal tibiofibular syndesmosis. The ankle mortise demonstrates preserved alignment. Soft tissues: Soft tissue swelling is present over the lateral malleolus. There is a small tibiotalar joint effusion. IMPRESSION: 1. Fracture of the distal fibula with extension to the tibiofibular syndesmosis. 2. Fracture of the distal tibial shaft. Dictated by: Michael Wallace M.D. on 10/12/2016 at 17:57 Approved by: Michael Wallace M.D. on 10/12/2016 at 17:58 Patient Name: LOBO DEVI MR#: [id number] Location: [facility] Ordering Phys: Gilberto Wilburn MD Date of Service: 10/12/16 1658 PROCEDURE: X-RAY LEFT TIBIA/FIBULA, TWO VIEWS ([id number]) INDICATIONS: trauma TECHNIQUE: 2 views of the tibia and fibula were acquired. COMPARISON: [facility], CR, XR TIBIA FIBULA 2VW LT, 10/12/2016, 16: 22. [facility], CR, XR ANKLE 3VW LT, 10/12/2016, 16:57. FINDINGS: Bones: There is a mild displaced spiral fracture of the mid to distal tibial shaft with slight lateral and posterior displacement of the distal component. There is also a mildly displaced spiral fracture of the distal fibula involving the lateral malleolus with extension to the distal tibiofibular syndesmosis. Soft tissues: No suspicious soft tissue calcifications or masses. IMPRESSION: 1. Fractures of the tibia and fibula as described. Dictated by: Michael Wallace M.D. on 10/12/2016 at 17:59 Approved by: Michael Wallace M.D. on 10/12/2016 at 18:00 Patient Name: LOBO DEVI MR#: [id number] Location: [facility] Ordering Phys: Gilberto Wilburn MD Date of Service: 10/12/16 1621 PROCEDURE: X-RAY LEFT TIBIA/FIBULA, TWO VIEWS ([id number]) INDICATIONS: trauma TECHNIQUE: 2 views of the tibia and fibula were acquired. COMPARISON: None. FINDINGS: Bones: There is a mild displaced spiral fracture of the tibial shaft. There is also a mildly displaced spiral fracture of the distal fibula involving the lateral malleolus. Soft tissues: No suspicious soft tissue calcifications or masses. IMPRESSION: 1. Mildly displaced spiral fractures of the tibia and fibula. Dictated by: Michael Wallace M.D. on 10/12/2016 at 17:48 Approved by: Michael Wallace M.D. on 10/12/2016 at 17:49 Assessment & Plan 31yoF with minimal past medical history present with with tibia fibula fracture. Tibia/fibula fracture -secondary to trauma, without suspicious characteristics. -orthopedist did surgery did October 13 - Open reduction and internal fixation with locked IM tibial ebenezer, left spiral mid to distal third tibial shaft fracture - Open reduction and internal fixation, left lateral malleolar fracture -pain management with oxycodone PRN effective Thrombocytopenia, unknown chronicity ADHD, chronic, POA -continue home medication of Strattera and guanfacine. Postoperative anemia -We will need repeat CBC at follow-up visit. -Current plan is nutritional increased iron intake, which should be effective at her age. Discharge Instructions from orthopedics are Weightbearing: Nonweightbearing left lower extremity with walker or crutches x 6 weeks DVT prophylaxis: Lovenox 40 mg subcutaneous 3 weeks Wound care: Keep splint/dressing clean and dry Elevate the left leg on pillows with support primarily under the knee and calf Showering instructions: Wrap a small towel at the top of the dressing at the thigh. Cover the entire leg with a trash bag and tape it closed. Dressing needs to stay clean and dry. Discharge medication plan: Percocet 2 every 4 hours not to exceed 8 per day, lorazepam 0.5 mg 3 times a day, Lovenox 40 mgSQ daily 3 weeks, Keflex 500 mg TID x 5 day We will also need to follow-up with primary care physician, Dr. Rahat Meeks. GI Prophylaxis: Not indicated VTE Prophylaxis: Sub-Q Enoxaparin VTE Mechanical Devices: Intermittant Pneumatic CD Resuscitation Status: CPR: Attempt Resuscitation Olamide Frost MD Oct 15, 2016 11:28
--- NOTE | 2016-10-15 17:06 | NUR ---
Discharge Patient's prescriptions were given to significant other, Darell, to get filled at the pharmacy before the patient discharges. Patient and significant other very adamant about taking the prescriptions before discharge. The rest of the discharge information was gone over with the patient and the patient showed verbal understanding of activity changes, follow up appointments, and each new medication. Lovenox teaching box also given to patient to go home from pharmacy. Most of patient's belongings were taken to a personal vehicle by significant other before taking prescriptions to get filled. No IV access, pain medication administered before discharge, and patient using crutches to ambulate. Awaiting significant other to come back for patient to discharge. Addendum: 10/15/16 at 1737 by EVELIN PRADO RN Patient discharged via personal wheelchair with significant other and the rest of her personal belongings.
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
== END 2016-10-15 17:35 | disposition home or self-care (01) ==
LOC: EDUNIT# 16:02 → SED 16:02 → EDBD 16:02 → OSC 18:26
PROVIDERS: ADMIT Internal Medicine; ATTEND Internal Medicine
DX: S82.242A Displaced spiral fracture of shaft of left tibia, initial encounter for closed fracture (principal); S82.62XA Displaced fracture of lateral malleolus of left fibula, initial encounter for closed fracture; X50.0XXA Overexertion from strenuous movement or load, initial encounter; Y93.59 Activity, other involving other sports and athletics played individually; Y92.007 Garden or yard of unspecified non-institutional (private) residence as the place of occurrence of the external cause; Y99.8 Other external cause status; F90.9 Attention-deficit hyperactivity disorder, unspecified type; D64.9 Anemia, unspecified; D69.6 Thrombocytopenia, unspecified
CPT/HCPCS: 27759; 27792; 36415; 73590; 73610; 76001; 80053; 85025; 96365; 96366; 96372; 96374; 96375; 96376; 97110; 97116; 97161; 97530; 99285; C1713; G0378; J0131; J0690; J1100; J1170; J1200; J1650; J1885; J2060; J2250; J2270; J2405; J2765; J3010; J7030; J7120; Q0177

== ENCOUNTER 2016-10-18 20:23 | Emergency (ER) | payer OTHER ==
[~2016-10-18] VITALS: Ht 166.4 cm; Wt 63.6 kg
[~2016-10-18 20:23] MED LIST changes: +ATOM40 PO; +CEFA500C PO; +CETI10CA PO; +DIPH25CA6 PO; -DIVA500T14 PO; +ENOX40DI8 SUBQ; +GUAN1TAB26 PO; +LORA-302 PO; +MULT-1018 PO; -NPR500T PO; +OXYC-466 PO; -PREN1TAB25 PO
[2016-10-18 20:28] VITALS: BP 114/75; PULSE 86; RESP 16; O2SAT 95
--- NOTE | 2016-10-18 20:59 | ED.REPORT ---
HPI-Extremity Problem Lower Date of Service Oct 18, 2016 ED Provider: John Preston DO Patient is a 31 year old female status post left intramedullary ebenezer fixation of the tibial fracture and fixation of the lateral malleolar fracture who presents to the ED complaining of left leg swelling onset 3 days ago. Associated symptoms include numbness of her left ankle. The patient reports that she had surgery 5 days ago and fell at home 3 days ago. She has since had fluctuating leg swelling and increasing leg pain. Patient was put on Lovenox after her surgery. Nursing Notes Stated Complaint: POST OP PAIN, AND SWELLING LEFT LEG Chief Complaint: General Complaint Nursing Notes Reviewed: Yes Allergies: Coded Allergies: venlafaxine (Verified Adverse Reaction, Unknown, 05/24/16) Homicidal ideation Scheduled Atomoxetine (Strattera) 40 Mg Capsule 40 PO BID Cefadroxil Hydrate (Cefadroxil) 500 Mg Capsule 500 MG PO Q8H Cetirizine HCl (Zyrtec) 10 Mg Capsule 10 MG PO HS Enoxaparin Sodium (Enoxaparin Sodium) 40 Mg/0.4 Ml Syringe 40 MG SUBQ Q24 Guanfacine ER (Guanfacine ER) 1 Mg Tab.er.24h 1 PO HS Multivitamin (Multi Vitamin Daily) 1 Each Tablet 1 EACH PO DAILY Prazosin (Minipress) 1 Mg Capsule 1 MG PO HS Scheduled PRN Lorazepam (Ativan) 0.5 Mg Tablet 0.5 MG PO TID PRN PRN anxiety diphenhydrAMINE HCl (Benadryl) 25 Mg Capsule 25 MG PO Q4H PRN PRN For Itching oxyCODONE-Acetaminophen 10-325 mg (oxyCODONE-Acetaminophen 10-325 mg) 1 Each Tablet 2 TAB PO Q4H PRN PRN For Pain Max 8 per day General Time Seen by MD: 20:58 Chief Complaint Leg injury left Hx Obtained From: Patient Arrived By: Walk-in Onset Occurred: 3 days ago Symptom Duration: Waxes and wanes Caused by: Fall on ground Location: : Ankle left: Leg left Severity: Current: Moderate Recent Healthcare: Recent doctor visit, Recent hospitalization Past Medical History Past Medical History Bipolar disorder with history of depression. History of rectal and vaginal tear Past Surgical History intramedullary ebenezer fixation of the tibial fracture and fixation of the lateral malleolar fracture (10/13/16) Family History Noncontributory Smoking History Former Smoker Social History Alcohol Use: "Social" Drug Use: Denies drug use Other Social History: Good social support, , Local resident Ambulatory Status Independent Review of Systems Constitutional: Denies: Chills, Fever Musculoskeletal: Reports: Extremity pain (left leg), Extremity swelling Neurologic: Reports: Numbness (of left ankle) Complete sys rev & neg: except as marked. Respiratory: Denies: Non-productive cough, Shortness of breath Allergy / Immune: Denies: Hives, Itching Physical Exam Initial Vital Signs Vital Signs (First) Date Time Temp Pulse Resp B/P Pulse Ox O2 Delivery O2 Flow Rate FiO2 10/18/16 20:28 37.1 86 16 114/75 95 Room Air Initial VS: Reviewed Lower Extremity / Pelvis / MS: Neurologic intact, Vascular intact well healing surgical wound on left knee no signs of infection palpable dp pulses calf pain with compression edema to the dorsal aspect of the foot and calf no signs of arterial insufficiency Ankle / Foot: Inspection NL, Neurologic intact, Vascular intact General/Constitutional: Awake, Alert, No acute distress Respiratory / Chest: Atraumatic, Breath sounds NL, Breath sounds = bilat, No respiratory distress Cardiovascular: Heart rate NL, Regular rhythm, Heart sounds NL Skin: Atraumatic, Color NL, No rash, Warm, Dry Neurologic: Oriented X3, Speech NL, No motor deficits, No sensory deficits Head / Eyes: Atraumatic, Normocephalic, PERRL, EOMI Psychiatric: Affect NL, Mood NL Interpretation & Diagnostics Interpretation & Diagnostics: US LEFT LOWER EXTREMITY VENOUS DOPPLER: CONCLUSION: No evidence of DVT of left lower extremity. at 2257 Re-Eval/Medical Decision Re-Evaluation/Progress #1: Time of Eval: 22:49 Re-Evaluation/Progress Note: Discussed ultrasound results and plan for discharge. Patient understands and agrees to plan. All questions were addressed. Re-Evaluation/Progress #2: Time of Eval: 23:17 Evaluation: Capillary refill normal Re-Evaluation/Progress Note: Splint was reapplied and patient was neurovascularly intact. Counseled Regarding: Diagnosis, Lab results, Need for follow-up, When/why to return to ED Discharge & Departure Impression: Primary Impression: Post-operative pain Additional Impressions: Leg pain, left Ankle pain, left Chronicity: acute Qualified Code: M25.572 - Pain in left ankle and joints of left foot Disposition: Home Discharge Condition All VS Reviewed: Yes Condition: Stable Patient Instructions: Splint Care (DC) Additional Instructions: Your ultrasound was normal and reassuring. There was no evidence of a blood clot. Keep your leg elevated as much as possible. Continue to take your pain medication as prescribed. Keep your follow up appointment with Dr. Carais as scheduled. Return to the emergency department if you develop any new or concerning symptoms including increasing pain or if your foot is cold for an extended period of time. Referrals: Rahat Meeks DO (PCP) Neil Carias MD Attestation Portions of this note were transcribed by Shabnam Scruggs. I, Dr. Preston personally performed the history, physical exam and medical decision-making; I reviewed and confirmed the accuracy of the information in the transcribed note. Signed by: Isaac Chase, 10/18/16 and 2119 copies to: Rahat Meeks DO; Neil Carias MD, Todd P DO Oct 18, 2016 20:59 Tanya Scruggs Oct 18, 2016 21:18
[2016-10-18 23:21] VITALS: BP 112/70; PULSE 89; RESP 14; O2SAT 100
--- NOTE | 2016-10-19 07:55 | DRSVH ---
PROCEDURE: US VEINOUS LEG DUPLEX UNILATERAL, LEFT INDICATIONS: post op leg swelling TECHNIQUE: Real-time imaging, as well as color and pulse Doppler interrogation, were performed of the lower extr emity deep veins from the inguinal ligament to the popliteal fossa. COMPARISON: None. FINDINGS: The deep veins are normally compressible, and free of intraluminal thrombus. Color and pu lse Doppler demonstrate normal phasic intraluminal flow. There is normal augmentation response to di stal compression maneuver. IMPRESSION: No deep vein thrombosis of the left lower extremity. These findings are concordant with the overnight interpretation. Dictated by: Aicha Santana M.D. on 10/19/2016 at 7:53 Approved by: Aicha Santana M.D. on 10/19/2016 at 7:54
== END 2016-10-18 23:22 | disposition home or self-care (01) ==
LOC: SED 20:23
DX: G89.18 Other acute postprocedural pain (principal); M79.662 Pain in left lower leg; M25.572 Pain in left ankle and joints of left foot; W18.39XA Other fall on same level, initial encounter; Y92.009 Unspecified place in unspecified non-institutional (private) residence as the place of occurrence of the external cause; Y93.9 Activity, unspecified; Y99.8 Other external cause status; Z87.891 Personal history of nicotine dependence; Z98.890 Other specified postprocedural states; Z88.8 Allergy status to other drugs, medicaments and biological substances